=== PATIENT | male | born 1940 | race Caucasian/White ===

== ENCOUNTER 2017-06-09 19:16 | Inpatient (IN) | payer OTHER ==
[~2017-06-09] VITALS: Ht 180.3 cm; Wt 100.0 kg
[2017-06-09] MEDS ORDERED: SODIUM CHLORIDE 0.9% 1L BAG IV* STA (20:24)
[2017-06-09] MEDS ORDERED: CEFEPIME 2GM/50 ML (PMX) 50 ML IVPB STA (20:24)
[2017-06-09] MEDS ORDERED: VANCOMYCIN 1 GM (PMX) 250 ML IVPB ONE (20:30)
[2017-06-09] MEDS ORDERED: OXYB5TAB22 PO (21:21)
[2017-06-09] MEDS ORDERED: FINA1TAB16 PO (21:21)
[2017-06-09] MEDS ORDERED: DIVA125C2 PO (21:21)
[2017-06-09] MEDS ORDERED: DONE5TAB32 PO (21:36)
[2017-06-09] MEDS ORDERED: DONE5TAB7 PO (21:36)
--- NOTE | 2017-06-09 21:36 | RADRPT ---
PROCEDURE: CT Brain without contrast. CLINICAL INDICATION: Altered level of consciousness TECHNIQUE: A CT of the brain was performed on a multidetector CT scanner utilizing axial imaging f rom the skull base through the vertex without IV contrast. Multiplanar reformatted images were made . Images were reviewed on a PACS workstation. The CTDIvol is 45 mGy and the DLP is 917 mGycm. One or more of the following dose reduction techniques were utilized: 1.) Automated exposure control 2.) Adjustment of the mA +/- kV according to patient's size 3.) Use of iterative reconstruction technique. COMPARISON: None FINDINGS: There is moderate to severe diffuse cerebral volume loss with sulcal and ventricular dilatation. No discrete extra-axial fluid collection or masses present. Ventricles are in the midline and of normal contour and configuration. There are extensive confluent regions of diminished attenuation in the p eriventricular and subcortical white matter of both cerebral hemispheres. No associated mass effect is present. There is no intracranial hemorrhage. Chronic lacunar infarct is seen in the left and rig ht basal ganglia. There is preservation of normal alexandra-white discrimination. There is normal aeration of the visualized paranasal sinuses. IMPRESSION: Atrophy. Extensive white matter disease compatible with chronic small vessel ischemia. Chronic basal ganglia lacunar infarcts. No intracranial hemorrhage or mass. .Geovani Corrales MD, MD Date Time Electronically viewed and signed by .Geovani Corrales MD, MD on 06/09/2017 21:36 .A/
[2017-06-09] MEDS ORDERED: CITA10TA84 PO (21:45)
[2017-06-09] MEDS ORDERED: SIMV40TA2 PO (21:45)
[2017-06-09] MEDS ORDERED: LISI20TA11 PO (21:52)
[2017-06-09] MEDS ORDERED: ACETAMINOPHEN 325 MG TAB PO PRN (22:00)
[2017-06-09] MEDS ORDERED: ONDANSETRON 4 MG INJ IV PRN (22:00)
[2017-06-09 22:06] LABS: ABNORMAL IP MESSAGE 1; BASOPHIL # 0.1 10^3/ul (0.0-0.1); BASOPHILS % 0.3 % (0.0-2.0); EOSINOPHILS % 0.1 % (0.0-7.0); HEMATOCRIT 48.2 % (42.0-52.0); HEMOGLOBIN 15.9 g/dl (14.0-18.0); LYMPHOCYTES # 1.4 10^3/ul (0.8-2.9); LYMPHOCYTES % 7.8 % (15.0-51.0); MEAN CORPUSCULAR HEMOGLOBIN 30.2 pg (29.0-33.0); MEAN CORPUSCULAR VOLUME 91.5 fl (82.0-101.0); MEAN PLATELET VOLUME 10.3 fl (7.4-10.4); MONOCYTE # 2.7 10^3/ul (0.3-0.9); MONOCYTES % 15.2 % (0.0-11.0); NEUTROPHIL # 13.4 10^3/ul (1.6-7.5); PLATELET COUNT 191 10^3/UL (140-415); POSITIVE DIFF @See below; RED BLOOD COUNT 5.27 10^6/ul (4.70-6.10); RED CELL DISTRIBUTION WIDTH 12.5 % (11.5-14.5); WHITE BLOOD COUNT 17.6 10^3/ul (4.8-10.8)
[2017-06-09 22:23] LABS: INR 1.11; PROTIME 14.3 Sec (12.2-14.2); PT RATIO 1.1
[2017-06-09 22:24] LABS: PARTIAL THROMBOPLASTIN TIME 26.4 Sec (25.0-35.0)
[2017-06-09 22:35] LABS: ALBUMIN 3.2 g/dl (3.3-4.9); ALBUMIN/GLOBULIN RATIO 1.06; BILIRUBIN,INDIRECT 0.5 mg/dl (0-1.1); BILIRUBIN,TOTAL 0.5 mg/dl (0.2-1.3); CALCIUM 9.1 mg/dl (8.4-10.2); CREATININE 1.55 mg/dl (0.61-1.24); POTASSIUM 4.1 mmol/L (3.5-5.1); TOTAL PROTEIN 6.2 g/dl (6.1-8.1)
--- NOTE | 2017-06-09 22:36 | RADRPT ---
PROCEDURE: CT CHEST ABDOMEN AND PELVIS WITHOUT CONTRAST CLINICAL INDICATION: 76-year of age male. Septic shock TECHNIQUE: CT of the chest, abdomen, and pelvis was performed without IV contrast. Oral contrast was not administered prior to the examination. Coronal and sagittal reformatted images were obtained fr om the axial source images. Images were reviewed on a high-resolution PACS workstation. DICOM images are available. Dose information: Based on a 32 cm phantom, the estimated radiation dose (CTDIvol mGy) for each seri es in this exam is 23.9. The estimated cumulative dose (DLP mGy-cm) is 1951. One or more of the following dose reduction techniques were used: - Automated exposure control. - Adjustment of the mA and/or kV according to patient size. - Use of iterative reconstruction technique. COMPARISON: None available. FINDINGS: In the absence of intravenous contrast, the study constitutes a limited assessment of the solid orga ns and vessels. CHEST: Medical devices: None. Thyroid: Normal. Lymph nodes: No supraclavicular, axillary, mediastinal, or hilar lymphadenopathy. Vasculature: Atherosclerosis thoracic aorta with borderline aneurysmal dilatation of the ascending a cecilio measuring 4 cm. Heart: Severe 4 vessel coronary artery calcification. Normal size No pericardial effusion. Other mediastinal structures: Normal noncontrast appearance. Lung parenchyma and pleura: Mild centrilobular emphysema. There is streaky atelectasis in bilateral mid and lower lung zones. Negative for focal lung consolidation. Airways: Normal noncontrast appearance. Chest wall: Normal noncontrast appearance. ABDOMEN/PELVIS: Liver: Two indeterminate hypodensities in the right hepatic lobe are incompletely characterized may represent cysts. Liver is otherwise unremarkable. Gallbladder: Hyperdense material in the gallbladder may represent sludge or noncalcified stones. Gal lbladder is normally distended without wall inflammation. Bile ducts: No intrahepatic or extrahepatic biliary duct dilatation. Spleen: Normal noncontrast appearance. Pancreas: Normal noncontrast appearance. Adrenal glands: Normal noncontrast appearance. Kidneys and ureters: 4.3 cm exophytic cyst superior pole right kidney. Kidneys are normal size witho ut hydronephrosis. Negative for urinary calculi. Aorta and IVC: Atherosclerosis abdominal aorta with focal ectasia of the infrarenal aorta measuring 2.6 cm. 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 Lymph nodes: Normal noncontrast appearance. Gastrointestinal tract: Diverticulosis greatest in the descending colon without diverticulitis. Miguel l loops are decompressed. Appendix: Normal Bladder: Cage catheter in collapsed bladder. There is nonspecific thickening of the wall of the uri nary bladder without edema in the surrounding fat. Pelvic Organs: Prostate gland and seminal vesicles are unremarkable. Peritoneal cavity: No free fluid or free intraperitoneal air. Abdominal wall: Bilateral left greater than right fat containing inguinal hernias. Left inguinal her lois extends into the scrotum. There is a 11.1 cm well circumscribed fatty mass in the inferior left pelvis that courses through the left obturator foramen and involves the adductor compartment of the left proximal thigh. BONES: Musculoskeletal: Bones are osteopenic and there are multilevel degenerative changes in spine. There is depression of the superior endplate of L3 from an old compression fracture or Schmorl's node. No suspicious bone lesions. IMPRESSION: 1. Cage catheter in decompressed urinary bladder. There is nonspecific thickening of the wall of t he urinary bladder. Recommend correlation with urinalysis to evaluate for potential cystitis. 2. Colonic diverticulosis without diverticulitis. 3. Extensive atherosclerosis with severe 4 vessel coronary artery calcification. 4. 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 It is composed almost en tirely of fat. Recommend attention on follow-up imaging. RPTAT: HCTS Physician Darrell Date Time Electronically viewed and signed by Physician Darrell on 06/09/2017 22:36 /
[2017-06-09 22:37] VITALS: TEMP 98.9
[2017-06-09 22:57] LABS: TROPONIN-I 0.19 ng/ml (0.00-0.12)
--- NOTE | 2017-06-09 23:07 | ERD ---
ER Documentation Chief Complaint Chief Complaint More altered than normal w/ no trauma, BS177,no SOB,no CP HPI 76-year-old male with a history of dementia, hypertension, hyperlipidemia, stroke, BPH presenting from his nursing facility for altered mental status. Patient does not have family with him. Reportedly the patient was hypotensive with a systolic blood pressure in the 80s. He was given at 2 50 cc fluid bolus prior to arrival with improvement of his blood pressure. Per the facility, he has been increasingly altered today. Normally he speaks and is alert. Otherwise history is limited. ROS Unable to obtain review of systems given patient's altered mental status Medications Home Meds Reported Medications Lisinopril* (Lisinopril*) 20 Mg Tablet, 20 MG PO DAILY, #30 TAB 06/09/17 Simvastatin* (Zocor*) 40 Mg Tablet, 40 MG PO QHS, #30 TAB 06/09/17 Citalopram Hydrobromide* (Citalopram Hydrobromide*) 10 Mg Tablet, 10 MG PO DAILY , #30 TAB 06/09/17 Donepezil* (Aricept*) 5 Mg Tablet, 5 MG PO DAILY, TAB 06/09/17 Donepezil* (Donepezil*) 5 Mg Tablet, 5 MG PO DAILY, #30 TAB 06/09/17 Divalproex Sodium* (Divalproex Sodium*) 125 Mg Cap.sprink, 125 MG PO QID, #120 CAP 06/09/17 Oxybutynin Chloride* (Ditropan* XL) 5 Mg Tabsr, 5 MG PO DAILY, TAB.SA 06/09/17 Finasteride* (Finasteride*) 1 Mg Tablet, 1 MG PO HS, TAB 06/09/17 Allergies Allergies: Coded Allergies: No Known Allergy (Unverified , 06/09/17) PMhx/Soc Unable to obtain from patient. Per records, he has a history of hypertension, stroke, dementia FmHx Family History: other (Unable to obtain) Physical Exam Vitals Vital Signs Date Time Temp Pulse Resp B/P Pulse Ox O2 Delivery O2 Flow Rate FiO2 06/09/17 23:39 107 20 135/81 94 Room Air 06/09/17 22:37 98.9 111 21 145/83 95 Room Air 06/09/17 20:35 97.7 105 18 124/88 97 Nasal Cannula 2.0 06/09/17 19:16 98.7 92 22 88/68 92 Physical Exam Const: Sleeping, somewhat arousable. Opens eyes to verbal command. Nontoxic, unkempt Head: Atraumatic Eyes: Normal Conjunctiva, PERRLA ENT: Dry tacky mucous membranes Neck: Full range of motion..~ No meningismus. Resp: Clear to auscultation bilaterally Cardio: Tachycardic, regular rhythm, no murmurs Abd: Soft, non tender, non distended. Normal bowel sounds Skin: No petechiae or rashes Back: No wounds noted. Ext: No cyanosis, or edema Neur: Somnolent but arousable. Makes incomprehensible sounds. Moves all extremities spontaneously. Result Diagram: 06/09/17214906/09/172149 Results 24 hrs Laboratory Tests Test 06/09/17 21:50 White Blood Count 17.610^3/ul Red Blood Count 5.2710^6/ul Hemoglobin 15.9g/dl Hematocrit 48.2% Mean Corpuscular Volume 91.5fl Mean Corpuscular Hemoglobin 30.2pg Mean Corpuscular Hemoglobin Concent 33.0g/dl Red Cell Distribution Width 12.5% Platelet Count 68222^3/UL Mean Platelet Volume 10.3fl Neutrophils % 76.0% Lymphocytes % 7.8% Monocytes % 15.2% Eosinophils % 0.1% Basophils % 0.3% Nucleated Red Blood Cells % 0.0/100WBC Neutrophils # 13.410^3/ul Lymphocytes # 1.410^3/ul Monocytes # 2.710^3/ul Eosinophils # 0.010^3/ul Basophils # 0.110^3/ul Nucleated Red Blood Cells # 0.010^3/ul Prothrombin Time 14.3Sec Prothrombin Time Ratio 1.1 INR International Normalized Ratio 1.11 Activated Partial Thromboplast Time 26.4Sec Sodium Level 145mmol/L Potassium Level 4.1mmol/L Chloride Level 111mmol/L Carbon Dioxide Level 24mmol/L Anion Gap 14 Blood Urea Nitrogen 34mg/dl Creatinine 1.55mg/dl Glucose Level 114mg/dl Lactic Acid Level 5.1mmol/L Calcium Level 9.1mg/dl Total Bilirubin 0.5mg/dl Direct Bilirubin 0.00mg/dl Indirect Bilirubin 0.5mg/dl Aspartate Amino Transf (AST/SGOT) 65IU/L Alanine Aminotransferase (ALT/SGPT) 38IU/L Alkaline Phosphatase 63IU/L Troponin I 0.190ng/ml Total Protein 6.2g/dl Albumin 3.2g/dl Globulin 3.00g/dl Albumin/Globulin Ratio 1.06 Current Medications Medications (Trade) Dose Ordered Sig/Yaquelin Route PRN Reason Start Time Stop Time Status Last Admin Dose Admin Sodium Chloride 3000 ml 3,000 ml BOLUS OVER 2 HOURS STAT IV* 06/09/17 20:24 06/09/17 20:28 DC 06/09/17 19:13 Cefepime HCl 50 ml @ 100 mls/hr ONCE STAT IVPB 06/09/17 20:24 06/09/17 20:53 DC 06/09/17 19:36 Vancomycin HCl (Vancocin) 250 ml @ 125 mls/hr ONCE ONCE IVPB 06/09/17 20:30 06/09/17 22:29 DC 06/09/17 20:08 Ondansetron HCl (Zofran Inj) 4 mg ER BRIDGE PRN IV NAUSEA AND/OR VOMITING 06/09/17 22:00 06/10/17 21:59 Acetaminophen 650 mg 650 mg ER BRIDGE PRN PO MILD PAIN/FEVER 06/09/17 22:00 06/10/17 21:59 Piperacillin Sod/ Tazobactam Sod 50 ml @ 100 mls/hr Q6 IVPB 06/10/17 00:00 Sodium Chloride (NS) 1,000 ml @ 1,000 mls/hr Q1H ONCE IV 06/09/17 23:30 06/10/17 00:29 Procedures/MDM EMERGENT LABS AND DIAGNOSTIC STUDIES: Lab Results above were reviewed and interpreted by me. CBC shows leukocytosis CMP shows hypernatremia, hyperchloremia, elevated BUN and creatinine lactate elevated to 4 Urinalysis does not show evidence of infection Troponin #1 within normal limits Troponin #2 elevated 12-lead EKG #1 was interpreted by Peter Ochoa MD: Sinus tachycardia at 120 bpm Left axis deviation Nonspecific ST abnormalities in the anterior and inferior leads No acute ST or T wave changes suggestive of acute ischemia or STEMI. 12-lead EKG #2 was interpreted by Peter Ochoa MD: Rate/Rhythm: Sinus tachycardia at 105 bpm with PACs QRS, ST, T-waves: Left axis deviation, no changes consistent w/ acute ischemia Impression: No evidence of ischemia or arrhythmia Radiology Results as interpreted by Radiology below were reviewed by Tamika Ochoa MD: Chest x-ray shows no acute abnormalities, specifically no consolidations consistent with pneumonia CT head shows no acute abnormalities, chronic changes noted CT chest shows no acute abnormalities CT abdomen and pelvis shows thickened bladder wall, otherwise no acute abnormalities Initial Nursing notes reviewed. Previous Medical Records requested via the Electronic Health Record. EMERGENCY DEPARTMENT COURSE / MEDICAL DECISION MAKING: Patient is presenting with reported altered mental status. Upon arrival he was normotensive but had tachycardia. He was also afebrile. On exam he was very dry. Sepsis workup was initiated. 30 cc/kg of IV fluids were given. Broad- spectrum antibiotics were also given. However workup does not show any source of infection. Repeat lactate was up trending. He was also noted to have an elevation of troponin, which may be secondary to sepsis. There is no evidence of ischemia on his EKGs. The patient's nurse, Roxanna, and I spoke with the patient's over the phone. She stated that she did not want a lumbar puncture done or any heroic or invasive measures. She is amenable to noninvasive treatment. She understands that he is very sick and that we do not have a source of infection and the only place we have not looked is in the spinal fluid. She states that his mental status is his baseline. He has not spoken to her for months and does not recognize her. Per his , his dementia is very advanced. Patient's infectious symptoms have not stabilized and the patient is at risk of rapid decompensation. The patient will be admitted for careful hydration, antibiotic therapy, and infectious source control.I spoke with the admitting physician, Dr. Camarena, about the 's wishes. Severe Sepsis Assessment: Infectious Source: Unknown End organ damage indicated by: Lactate > 2.0 mmol/L Hypotension( SBP < 90 or >40 mmHG drop or MAP < 65) Severe Sepsis Managment: Blood Cultures X 2 before broad spectrum antibiotics initiated within 3 hours of recognition. 30 ml/kg NS bolus Completed Initial Lactate: 4 Repeat Lactate 5.1 Critical Care: Time: 40 minutes Treatments/Evaluations: Emergent fluid management, while maintaining close respiratory support. Immediate broad spectrum antibiotic therapy. Simultaneous assessment for possible sources in order to direct therapy. Consideration for invasive and chemical support to prevent respiratory or cardiac collapse. Septic Shock Assessment (1 hour post 30 ml/kg fluid bolus): Hypotension (SBP < 90 or 40 mmHg drop, MAP < 65): No Lactic acid > 4.0 yes Perfusion Reassessment for Septic Shock: Temp 98.9, Pulse 111, RR 21, BP 145 / 83 Heart Exam: Tachycardic Lung Exam: No Crackles Capillary Refill: Normal Peripheral Pulses: Radially present Skin: Pale, warm, dry Accepting Care Team: Current data and ongoing care discussed. Time: Time of admission Primary Provider: Migue Outstanding Data: cultures Departure Diagnosis: Primary Impression: Altered mental status Altered mental status type: somnolence Qualified Code: R40.0 - Somnolence Additional Impressions: Septic shock Acute renal failure Acute renal failure type: unspecified Qualified Code: N17.9 - Acute renal failure, unspecified acute renal failure type Condition: Critical SERENITY OCHOA MD Jun 09, 2017 23:06
--- NOTE | 2017-06-09 23:24 | RADRPT ---
PROCEDURE: Renal US. CLINICAL INDICATION: Renal failure. TECHNIQUE: Multiple sonographic images of the kidneys were obtained. COMPARISON: No prior studies are submitted for comparison. FINDINGS: The right kidney measures 12.5 cm. There is preservation of corticomedullary differentiation. No sha dowing renal calculus is identified. There is no evidence of hydronephrosis. There is 83.5 x 4 x 3.9 cm cyst within the upper pole of the right kidney. The left kidney measures 11.3 cm. There is preservation of corticomedullary differentiation. No shad owing renal calculus is identified. There is no evidence of hydronephrosis. The bladder is fluid-filled. The visualized aorta is within normal limits. The visualized portions of the IVC are within normal l imits. IMPRESSION: No evidence of shadowing renal calculi or hydronephrosis. RPTAT: HIKT .Stephen Will MD, Date Time Electronically viewed and signed by .Stephen Will MD, on 06/09/2017 23:23 .T/
[2017-06-09] MEDS ORDERED: SOD CHLORIDE 0.9% 1,000 ML IV ONE (23:30)
[2017-06-10] VITALS (12 sets, daily range): BP systolic 132–170; BP diastolic 73–97; PULSE 83–101; RESP 17–21; Ht 180.3 cm; Wt 100.0 kg
[2017-06-10] MEDS: PIPER-TAZO 2.25 GM (PMX) 50 ML IVPB SCH ×4 (01:06→17:14)
[2017-06-10] MEDS ORDERED: VANCOMYCIN IV PER PHARMACY XX SCH (01:30)
--- NOTE | 2017-06-10 01:30 | HP ---
Date/Time of Note Date/Time of Note DATE: 06/10/17 TIME: : Assessment/Plan VTE Prophylaxis VTE Prophylaxis Intervention: SCD's Lines/Catheters IV [facility]from [facility] Peripheral IV Assessment/Plan Chief Complaint/Hosp Course This is a 76-year-old male being admitted to the telemetry floor for: #1 Septic shock: Dehydration and/or infection and/or bowel ischemia. Patient is tachycardic and lactic acid before. Patient also was hypotensive. At the current time will provide aggressive IV fluid hydration with normal saline. Will trend lactate levels. At the current time there is been no source of infection has been able to be identified. Will check a urinalysis and urine culture. CT of the abdomen and pelvis and chest did not show any acute signs of infection however this was without contrast secondary to the patient's acute kidney injury. Being that he has been in and out of healthcare facilities over the last few weeks there is obvious he concern for healthcare associated infections. Less likely bowel ischemia at this time as patient's abdomen is soft and he does not appear to be in a deep to the abdominal exam lactic acid also trending normal. Patient is not displaying any nuchal rigidity. However because no source is able to be determined the ER physician did want to attempt lumbar puncture however when spoken to the over the phone she does not want any aggressive measures or procedures done for the patient. I spoke to her myself over the phone as well and she does not want a lumbar puncture done. CODE STATUS hernandez patient is a DNR however the patient's did state that if there is something like appendicitis but that she would be willing to consider possible surgical intervention. At the current time will await serra culture results. As patient's lactate levels have been improving will continue fluid hydration and consider a CT abdomen pelvis with contrast if the renal function becomes acceptable and no source of infection is found. Patient has been started on empiric antibiotics of Vanco and cefepime in the ED, I will continue vancomycin IV pharmacy to dose and Zosyn IV, renally dosed. Trend lactate levels. #2 elevated troponin: Based on patient's mental status, unable to determine whether the patient is feeling any chest pain however he at the current time is sleeping comfortably in bed. EKG does not show any acute abnormalities. Could be secondary to demand. At the current time will trend troponins. In order an echocardiogram in the a.m. If the troponins do continue to rise will initiate heparin drip. 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 It is composed almost entirely of fat. Recommend attention on follow-up imaging. Will continue to monitor this, I think less likely this being the culprit for the acute sickness at this time. Will continue to monitor this, consider surgical consult. #4 acute kidney injury: I do not have a baseline creatinine to go by. The current time will order ultrasound of the kidneys, urine microscopic exam. Will renally dose medications. Will continue to monitor renal function. #5 dementia: I am unsure at this time of the patient's baseline though the does state that he is confused at baseline. Will continue to treat for #1 and monitor patient's mental status. Resume patient's home medications once patient is able to swallow. Will order swallow evaluation. #6 hypertension: At the current time will avoid patient's home hypertensive medications secondary to hypotension. Will resume medications once patient is clinically stable. #7 stroke: At the current time due to the patient's lethargy and somnolence, and unable to assess patient's neurological exam to see whether there are any residual deficits from his stroke. #8 BPH: Stable, currently patient has a Cage that was inserted. #9 DVT and GI prophylaxis: SCDs, no GI prophylaxis indicated. I did speak at length with the over the phone and explained to her the patient's condition. At the current time the patient's does not want any heroic measures or invasive procedures such as a lumbar tap. She is agreeable to having abdominal surgery if the patient is found to have something such as appendicitis. This case I did discuss the patient's CODE STATUS with the who did state that the patient is a DO NOT RESUSCITATE, DNR. Further treatment strategy will be elevated as per the clinical course Problems: HPI/ROS Admit Date/Time Admit Date/Time Jun 09, 2017 at 22:01 Hx of Present Illness cc: AMS This is a 76-year-old male with a history of dementia, hypertension, hyperlipidemia, stroke, BPH presenting from his nursing facility for altered mental status. History was obtained from the ER physician as well as the over the phone. Reportedly the patient was hypotensive with a systolic blood pressure in the 80s. He was given fluid bolus prior to arrival with improvement of his blood pressure. Per the facility, he has been increasingly altered today. states he has baseline dementia and he has been in and out of healthcare facilities over the past few weeks. states he is a DNR and she does not want him to undergo aggressive procedures such as a lumbar tap or aggressive surgery unless something like "appendicitis" is found according to her. allergies: nkda meds: see mar ROS Subjective hx not possible: pt non-verbal (dementia, lethargic), pt critical status PMH/Family/Social Past Medical History dementia, hypertension, hyperlipidemia, stroke, BPH Past Surgical History unknown, as unable to obtain history Family History Significant Family History: other (unknown as unable to obtain history) Social History unknown as unable to obtain history Exam/Review of Systems Vital Signs Vitals Vital Signs Date Time Temp Pulse Resp B/P Pulse Ox O2 Delivery O2 Flow Rate FiO2 06/10/17 00:39 93 06/10/17 00:00 98.4 19 133/73 96 06/09/17 23:39 Room Air 06/09/17 20:35 2.0 Intake and Output 06/09/17 06/09/17 06/10/17 15:00 23:00 07:00 Output Total 350 ml Balance -350 ml Exam Exam General: Patient is lethargic and somnolent in bed, he is arousable but is not able to answer questions appropriately. HEENT: Atraumatic, normocephalic. The pupils are equal, round and reactive. Extraocular motor are intact Neck: Supple with full range of motion. No rigidity or meningismus Chest: Nontender Lungs: Clear to auscultation bilaterally no crackles rales or wheezing Heart: Sinus tachycardia, Abdomen: Soft , nontender, nondistended , bowel sounds are present. No guarding no rebound tenderness , No masses or organomegaly. No costovertebral temporal angle mass Extremities: Normal to inspection, no edema no cyanosis Neurologic: Somnolent, lethargic. Patient is easily arousable. History of dementia. Additional Comments PROCEDURE: Renal US. CLINICAL INDICATION: Renal failure. TECHNIQUE: Multiple sonographic images of the kidneys were obtained. COMPARISON: No prior studies are submitted for comparison. FINDINGS: The right kidney measures 12.5 cm. There is preservation of corticomedullary differentiation. No shadowing renal calculus is identified. There is no evidence of hydronephrosis. There is 83.5 x 4 x 3.9 cm cyst within the upper pole of the right kidney. The left kidney measures 11.3 cm. There is preservation of corticomedullary differentiation. No shadowing renal calculus is identified. There is no evidence of hydronephrosis. The bladder is fluid-filled. The visualized aorta is within normal limits. The visualized portions of the IVC are within normal limits. IMPRESSION: No evidence of shadowing renal calculi or hydronephrosis. RPTAT: HIKT .Stephen Will MD, MD Date Time Electronically viewed and signed by .Stephen Will MD, MD on 06/09/2017 23:23 .T/ CC: DONA CORTES PROCEDURE: CT CHEST ABDOMEN AND PELVIS WITHOUT CONTRAST CLINICAL INDICATION: 76-year of age male. Septic shock TECHNIQUE: CT of the chest, abdomen, and pelvis was performed without IV contrast. Oral contrast was not administered prior to the examination. Coronal and sagittal reformatted images were obtained from the axial source images. Images were reviewed on a high-resolution PACS workstation. DICOM images are available. Dose information: Based on a 32 cm phantom, the estimated radiation dose ( CTDIvol mGy) for each series in this exam is 23.9. The estimated cumulative dose (DLP mGy-cm) is 1951. One or more of the following dose reduction techniques were used: - Automated exposure control. - Adjustment of the mA and/or kV according to patient size. - Use of iterative reconstruction technique. COMPARISON: None available. FINDINGS: In the absence of intravenous contrast, the study constitutes a limited assessment of the solid organs and vessels. CHEST: Medical devices: None. Thyroid: Normal. Lymph nodes: No supraclavicular, axillary, mediastinal, or hilar lymphadenopathy. Vasculature: Atherosclerosis thoracic aorta with borderline aneurysmal dilatation of the ascending aorta measuring 4 cm. Heart: Severe 4 vessel coronary artery calcification. Normal size No pericardial effusion. Other mediastinal structures: Normal noncontrast appearance. Lung parenchyma and pleura: Mild centrilobular emphysema. There is streaky atelectasis in bilateral mid and lower lung zones. Negative for focal lung consolidation. Airways: Normal noncontrast appearance. Chest wall: Normal noncontrast appearance. ABDOMEN/PELVIS: Liver: Two indeterminate hypodensities in the right hepatic lobe are incompletely characterized may represent cysts. Liver is otherwise unremarkable. Gallbladder: Hyperdense material in the gallbladder may represent sludge or noncalcified stones. Gallbladder is normally distended without wall inflammation. Bile ducts: No intrahepatic or extrahepatic biliary duct dilatation. Spleen: Normal noncontrast appearance. Pancreas: Normal noncontrast appearance. Adrenal glands: Normal noncontrast appearance. Kidneys and ureters: 4.3 cm exophytic cyst superior pole right kidney. Kidneys are normal size without hydronephrosis. Negative for urinary calculi. Aorta and IVC: Atherosclerosis abdominal aorta with focal ectasia of the infrarenal aorta measuring 2.6 cm. 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 Lymph nodes: Normal noncontrast appearance. Gastrointestinal tract: Diverticulosis greatest in the descending colon without diverticulitis. Bowel loops are decompressed. Appendix: Normal Bladder: Cage catheter in collapsed bladder. There is nonspecific thickening of the wall of the urinary bladder without edema in the surrounding fat. Pelvic Organs: Prostate gland and seminal vesicles are unremarkable. Peritoneal cavity: No free fluid or free intraperitoneal air. Abdominal wall: Bilateral left greater than right fat containing inguinal hernias. Left inguinal hernia extends into the scrotum. There is a 11.1 cm well circumscribed fatty mass in the inferior left pelvis that courses through the left obturator foramen and involves the adductor compartment of the left proximal thigh. BONES: Musculoskeletal: Bones are osteopenic and there are multilevel degenerative changes in spine. There is depression of the superior endplate of L3 from an old compression fracture or Schmorl's node. No suspicious bone lesions. IMPRESSION: 1. Cage catheter in decompressed urinary bladder. There is nonspecific thickening of the wall of the urinary bladder. Recommend correlation with urinalysis to evaluate for potential cystitis. 2. Colonic diverticulosis without diverticulitis. 3. Extensive atherosclerosis with severe 4 vessel coronary artery calcification. 4. 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 It is composed almost entirely of fat. Recommend attention on follow-up imaging. RPTAT: HCTS Physician Darrell Date Time Electronically viewed and signed by Physician Darrell on 06/09/2017 22: 36 CS/ CC: SERENITY COSTA MD 12-lead EKG #1 : Sinus tachycardia at 120 bpm Left axis deviation Nonspecific ST abnormalities in the anterior and inferior leads No acute ST or T wave changes suggestive of acute ischemia or STEMI. 12-lead EKG #2 : Rate/Rhythm: Sinus tachycardia at 105 bpm with PACs QRS, ST, T-waves: Left axis deviation, no changes consistent w/ acute ischemia Impression: No evidence of ischemia or arrhythmia Above as per ED physician documentation Labs Result Diagram: 06/09/17214906/09/172149 Medications Medications Current Medications Piperacillin Sod/ Tazobactam Sod (Zosyn 2.25gm/ 50ml (Pmx)) 50 ml @ 100 mls/hr Q6 IVPB Last administered on 06/10/17t 01:06; Admin Dose 100 MLS/HR; Start at 00:00 DONA CORTES Jun 10, 2017 01:30
[2017-06-10 01:43] LABS: ALBUMIN/GLOBULIN RATIO 1.03; BILIRUBIN,INDIRECT 0.6 mg/dl (0-1.1); BILIRUBIN,TOTAL 0.6 mg/dl (0.2-1.3); CALCIUM 8.8 mg/dl (8.4-10.2); CREATININE 1.35 mg/dl (0.61-1.24); POTASSIUM 4.2 mmol/L (3.5-5.1); TOTAL PROTEIN 5.9 g/dl (6.1-8.1)
[2017-06-10 08:38] LABS: CK-MB 19.3 ng/ml (0.0-2.4); TROPONIN-I 0.784 ng/ml (0.00-0.12)
[2017-06-10] MEDS ORDERED: HEPARIN 1000 UNITS/ML 10 ML INJ IV PRN (09:30)
[2017-06-10] MEDS ORDERED: HEPARIN 1000 UNITS/ML 10 ML INJ IV ONE (09:30)
[2017-06-10 09:56] LABS: BASOPHIL # 0.1 10^3/ul (0.0-0.1); BASOPHILS % 0.5 % (0.0-2.0); EOSINOPHILS # 0.2 10^3/ul (0.0-0.5); EOSINOPHILS % 2.1 % (0.0-7.0); HEMATOCRIT 43.5 % (42.0-52.0); HEMOGLOBIN 14.5 g/dl (14.0-18.0); LYMPHOCYTES # 1.6 10^3/ul (0.8-2.9); LYMPHOCYTES % 14.5 % (15.0-51.0); MEAN CORPUSCULAR HEMOGLOBIN 30.1 pg (29.0-33.0); MEAN CORPUSCULAR HGB CONC 33.3 g/dl (32.0-37.0); MEAN CORPUSCULAR VOLUME 90.4 fl (82.0-101.0); MEAN PLATELET VOLUME 10.4 fl (7.4-10.4); MONOCYTE # 1.2 10^3/ul (0.3-0.9); MONOCYTES % 10.9 % (0.0-11.0); NEUTROPHIL # 8.1 10^3/ul (1.6-7.5); NEUTROPHILS % 71.6 % (39.0-77.0); PLATELET COUNT 170 10^3/UL (140-415); RED BLOOD COUNT 4.81 10^6/ul (4.70-6.10); RED CELL DISTRIBUTION WIDTH 12.8 % (11.5-14.5); WHITE BLOOD COUNT 11.3 10^3/ul (4.8-10.8)
[2017-06-10 10:16] LABS: INR 1.06; PROTIME 13.8 Sec (12.2-14.2); PT RATIO 1.1
[2017-06-10 10:17] LABS: PARTIAL THROMBOPLASTIN TIME 26.9 Sec (25.0-35.0)
--- NOTE | 2017-06-10 10:17 | RADRPT ---
Echocardiogram Report Patient Name: CLIFFORD HERRING Gender: Male Date: 1940 Study Date: 10-Jun-2017 Schedule Announcer: Jake Castrejon [facility] Location: [address] Ref. Physician: DONA CORTES Quality: Technically Difficult Study Procedures: Transthoracic echocardiogram with complete 2D, M-Mode, and doppler examination. Indications: elevated troponin. 2D/M Mode Doppler Measurement Value Normal Ranges Measurement Value Normal Ranges LVIDd 2D 4.2 3.5 - 5.6 cm JAYLA Vmax 2.2 cm2 LVIDs 2D 2.9 2.1 - 4.1 cm JAYLA VTI 2.2 cm2 LVPWd 2D 1.5 0.6 - 1.1 cm AV Peak Raimundo 1.9 m/sec IVSd 2D 1.4 0.6 - 1.1 cm AV Peak PG 15.0 mmHg AoR Diam 2D 3.6 2.0 - 3.7 cm LVOT Peak Raimundo 1.2 m/sec EDV 2D 79.8 cm3 LVOT Peak PG 6.2 mmHg ESV 2D 24.5 cm3 MV E Peak Raimundo 0.6 m/sec LA Dimen 2D 3.0 2.3 - 4.0 cm MV A Peak Raimundo 1.0 m/sec LVOT Diam 2.1 cm MV E/A 0.6 MV Decel Time 168 msec MV Decel Banner 3 MV E/A 0.6 Findings Left Ventricle: Very poor endocardial visualization but overall the size and function are likely normal. Definite wall motion abnormalities could not be assessed. Mild LVH. Right Ventricle: Not well visualized. Left Atrium: Not well visualized. Right Atrium: Not well visualized. Mitral Valve: Mitral valve is not well visualized. Trace mitral regurgitation. Aortic Valve: Aortic valve not well visualized. Tricuspid Valve: Tricuspid valve not well visualized. Unable to obtain RVSP due to minimal presence of tricuspid regurgitation. Pulmonic Valve: Pulmonic valve not well visualized. Pericardium: Normal pericardium with no significant pericardial effusion. Aorta: Not well visualized. IVC: Normal size and normal respiratory collapse consistent with normal right atrial pressure. Conclusions 1.Technically very difficult study with poor endocardial visualization. 2.Very poor endocardial visualization but overall the size and function are likely normal. Definite wall motion abnormalities could not be assessed. Mild LVH. 3.No obvious valvular dysfunction but not well visualized. 4.Unable to obtain RVSP. RA pressure estimated to be 3 mmHg. Electronically Signed By: Mathew Marcelino 10-Jun-2017 10:16:51 -0800 Patient Name: CLIFFORD HERRING Study Date: 10-Jun-2017 [id number]
[2017-06-10] MEDS: CITALOPRAM 20 MG TAB PO SCH (10:27)
[2017-06-10] MEDS: HEPARIN 25000 UNITS/250 ML 250 ML IV SCH ×2 (11:01→18:20)
--- NOTE | 2017-06-10 11:09 | PN ---
Date/Time of Note Date/Time of Note DATE: 06/10/17 TIME: 10:59 Assessment/Plan VTE Prophylaxis VTE Prophylaxis Intervention: SCD's Lines/Catheters IV Catheter Type (from Nrsg): Peripheral IV Urinary Cath still in place: Yes Reason Cath still needed: other (indicate) (unclear) Assessment/Plan Assessment/Plan 76 yo M with dementia sent from SNF for acute on chronic encephalopathy, most likely toxic/metabolic from sepsis with resultant lactic acidosis. Source of sepsis at this time unclear, possibly urine? Also with NSTEMI likely from demand from sepsis. #sepsis: cultures is process -continue zosyn and vanc. will likely stop vanc tomorrow if no evidence of GPCs in blood or urine #NSTEMI: most likely from demand -heparin drip -cardiology consult -cont home statin -consider bb, holding home acei given LEO -check a1c #LEO: likely prerenal from sepsis, already improving -hold acei #lactic acidosis: 2/2 sepsis. resolving #dementia/?hx seizures and/or bipolar d/o?: cont home psychotropic medications #BPH/?OAB: cont finasteride and ditropan #FEN: ST eval pending for swallow safety prophx: SQ[facility] Subjective 24 Hr Interval Summary Free Text/Dictation Pt resting but able to follow commands this AM however doesn't answer questions Exam/Review of Systems Vital Signs Vitals Vital Signs Date Time Temp Pulse Resp B/P Pulse Ox O2 Delivery O2 Flow Rate FiO2 06/10/17 08:19 94 06/10/17 08:08 98.1 17 153/76 95 06/10/17 01:55 2.0 06/10/17 01:00 Nasal Cannula Intake and Output 06/09/17 06/09/17 06/10/17 15:00 23:00 07:00 Intake Total 50 ml Output Total 850 ml Balance -800 ml Exam nad sitting up in bed no mrg lungs clear abd soft carballo in place labs reviewed, trops uptrending WBCs and LA downtrending UA from other chart reviewed cultures negative thus far CXR unremarkable TTE results reviewed Results Result Diagram: 06/10/17 0940 06/10/17 0109 Results 24 hrs Laboratory Tests Test 06/09/17 21:50 06/09/17 22:00 06/09/17 23:30 06/10/17 01:09 White Blood Count 17.6 H Red Blood Count 5.27 Hemoglobin 15.9 Hematocrit 48.2 Mean Corpuscular Volume 91.5 Mean Corpuscular Hemoglobin 30.2 Mean Corpuscular Hemoglobin Concent 33.0 Red Cell Distribution Width 12.5 Platelet Count 191 Mean Platelet Volume 10.3 Neutrophils % 76.0 Lymphocytes % 7.8 L Monocytes % 15.2 H Eosinophils % 0.1 Basophils % 0.3 Nucleated Red Blood Cells % 0.0 Neutrophils # 13.4 H Lymphocytes # 1.4 Monocytes # 2.7 H Eosinophils # 0.0 Basophils # 0.1 Nucleated Red Blood Cells # 0.0 Prothrombin Time 14.3 H Prothrombin Time Ratio 1.1 INR International Normalized Ratio 1.11 Activated Partial Thromboplast Time 26.4 Sodium Level 145 H 144 Potassium Level 4.1 4.2 Chloride Level 111 H 109 Carbon Dioxide Level 24 29 Anion Gap 14 10 Blood Urea Nitrogen 34 H 32 H Creatinine 1.55 H 1.35 H Glucose Level 114 104 Lactic Acid Level 5.1 *H 3.9 *H 2.8 *H Calcium Level 9.1 8.8 Total Bilirubin 0.5 0.6 Direct Bilirubin 0.00 0.00 Indirect Bilirubin 0.5 0.6 Aspartate Amino Transf (AST/SGOT) 65 H 70 H Alanine Aminotransferase (ALT/SGPT) 38 46 Alkaline Phosphatase 63 66 Troponin I 0.190 *H Total Protein 6.2 5.9 L Albumin 3.2 L 3.0 L Globulin 3.00 2.90 Albumin/Globulin Ratio 1.06 1.03 Erythrocyte Sedimentation Rate 4 Test 06/10/17 03:11 06/10/17 06:27 06/10/17 09:40 Lactic Acid Level 2.3 *H 1.5 Creatine Kinase 1467 H Creatine Kinase Index 1.3 Creatinine Kinase MB (Mass) 19.30 H Troponin I 0.784 *H White Blood Count 11.3 #H Red Blood Count 4.81 Hemoglobin 14.5 Hematocrit 43.5 Mean Corpuscular Volume 90.4 Mean Corpuscular Hemoglobin 30.1 Mean Corpuscular Hemoglobin Concent 33.3 Red Cell Distribution Width 12.8 Platelet Count 170 Mean Platelet Volume 10.4 Neutrophils % 71.6 Lymphocytes % 14.5 L Monocytes % 10.9 Eosinophils % 2.1 Basophils % 0.5 Nucleated Red Blood Cells % 0.0 Neutrophils # 8.1 H Lymphocytes # 1.6 Monocytes # 1.2 H Eosinophils # 0.2 Basophils # 0.1 Nucleated Red Blood Cells # 0.0 Prothrombin Time 13.8 Prothrombin Time Ratio 1.1 INR International Normalized Ratio 1.06 Activated Partial Thromboplast Time 26.9 Medications Medications Current Medications Piperacillin Sod/ Tazobactam Sod 50 ml @ 100 mls/hr Q6 IVPB Last administered on 06/10/17 06:55; Admin Dose 100 MLS/HR; Start 06/10/17 at 00:00 Vancomycin HCl/ Sodium Chloride (Vancocin/NS) 250 ml @ 83.333 mls/ hr Q24H IVPB ; Start 06/10/17 at 10:00 Citalopram Hydrobromide (Celexa) 10 mg DAILY PO Last administered on 10:27; Admin Dose 10 MG; Start 06/10/17 at 09:30 Divalproex Sodium (Depakote Sprinkle) 125 mg QID PO ; Start 06/10/17 at 13:00 Donepezil HCl (Aricept) 5 mg QHS PO ; Start 06/10/17 at 21:00 Oxybutynin Chloride (Ditropan Xl) 5 mg DAILY PO ; Start 06/10/17 at 11:00 Atorvastatin Calcium (Lipitor) 20 mg DAILY@21 PO ; Start 06/10/17 at 21:00 Finasteride (Proscar) 5 mg QHS PO ; Start 06/10/17 at 21:00 PETERSON SHARPE MD Jun 10, 2017 11:09
--- NOTE | 2017-06-10 12:30 | CONS ---
Date/Time of Note Date/Time of Note DATE: 06/10/17 TIME: 12:30 Assessment/Plan Assessment/Plan Chief Complaint/Hosp Course NSTEMI: Peak trop 0.8. EF likely preserved but poor echo study. Likely type II in setting of septic shock/hypotension in background of likely CAD. Treat medically as pt is not a candidate for cardiac cath. Septic shock: Source unclear as of yet. Cultures pending Acute renal failure: improved with IVF H/o CVA HTN HL -ok to continue heparin for now but likely d/c tomorrow -start ASA, low dose statin -metoprolol 25mg BID -antibiotics per primary Problems: Consultation Date/Type/Reason Admit Date/Time Jun 09, 2017 at 22:01 Date of Consultation: Jun 10, 2017 Type of Consultation: Cardiology Reason for Consultation NSTEMI Referring Provider: PETERSON SHARPE MD Hx of Present Illness 76 yo M with a h/o HTN, HL, prior CVA, stroke, who was brought in from his assisted living facility with altered mentation and was found to have septic shock. He was fluid resuscitated and given antibiotics. He had elevated trops peaking at 0.8. The pt was apparently less alert yesterday but today is alert though confused. No chest pain, SOB. limited due to dementia Past Medical History per hPI Social History Smoking Status: Unknown if ever smoked Exam/Review of Systems Vital Signs Vitals Vital Signs Date Time Temp Pulse Resp B/P Pulse Ox O2 Delivery O2 Flow Rate FiO2 06/10/17 12:08 83 06/10/17 11:55 98.4 17 165/97 92 06/10/17 01:55 2.0 06/10/17 01:00 Nasal Cannula Intake and Output 06/09/17 06/09/17 06/10/17 15:00 23:00 07:00 Intake Total 50 ml Output Total 850 ml Balance -800 ml Exam Constitutional: alert, oriented Psych: confusion Head: atraumatic, normocephalic Eyes: nl conjunctiva ENMT: nl external ears & nose Neck: supple, No jvd Respiratory: clear to auscultation, No crackles/rales Cardiovascular: regular rate and rhythm, No edema, No systolic murmur Gastrointestinal: non-tender, soft, No distended Neurological: nl speech, No nl mental status Skin: No rash or lesions Results EKG: sinus tachycardia, no ST changes Result Diagram: 06/10/17 0940 06/10/17 0109 Results 24 hrs Laboratory Tests Test 06/09/17 21:50 06/09/17 22:00 06/09/17 23:30 06/10/17 01:09 White Blood Count 17.6 H Red Blood Count 5.27 Hemoglobin 15.9 Hematocrit 48.2 Mean Corpuscular Volume 91.5 Mean Corpuscular Hemoglobin 30.2 Mean Corpuscular Hemoglobin Concent 33.0 Red Cell Distribution Width 12.5 Platelet Count 191 Mean Platelet Volume 10.3 Neutrophils % 76.0 Lymphocytes % 7.8 L Monocytes % 15.2 H Eosinophils % 0.1 Basophils % 0.3 Nucleated Red Blood Cells % 0.0 Neutrophils # 13.4 H Lymphocytes # 1.4 Monocytes # 2.7 H Eosinophils # 0.0 Basophils # 0.1 Nucleated Red Blood Cells # 0.0 Prothrombin Time 14.3 H Prothrombin Time Ratio 1.1 INR International Normalized Ratio 1.11 Activated Partial Thromboplast Time 26.4 Sodium Level 145 H 144 Potassium Level 4.1 4.2 Chloride Level 111 H 109 Carbon Dioxide Level 24 29 Anion Gap 14 10 Blood Urea Nitrogen 34 H 32 H Creatinine 1.55 H 1.35 H Glucose Level 114 104 Lactic Acid Level 5.1 *H 3.9 *H 2.8 *H Calcium Level 9.1 8.8 Total Bilirubin 0.5 0.6 Direct Bilirubin 0.00 0.00 Indirect Bilirubin 0.5 0.6 Aspartate Amino Transf (AST/SGOT) 65 H 70 H Alanine Aminotransferase (ALT/SGPT) 38 46 Alkaline Phosphatase 63 66 Troponin I 0.190 *H Total Protein 6.2 5.9 L Albumin 3.2 L 3.0 L Globulin 3.00 2.90 Albumin/Globulin Ratio 1.06 1.03 Erythrocyte Sedimentation Rate 4 Test 06/10/17 03:11 06/10/17 06:27 06/10/17 09:36 06/10/17 09:40 Lactic Acid Level 2.3 *H 1.5 Creatine Kinase 1467 H Creatine Kinase Index 1.3 Creatinine Kinase MB (Mass) 19.30 H Troponin I 0.784 *H Hemoglobin A1c 5.3 White Blood Count 11.3 #H Red Blood Count 4.81 Hemoglobin 14.5 Hematocrit 43.5 Mean Corpuscular Volume 90.4 Mean Corpuscular Hemoglobin 30.1 Mean Corpuscular Hemoglobin Concent 33.3 Red Cell Distribution Width 12.8 Platelet Count 170 Mean Platelet Volume 10.4 Neutrophils % 71.6 Lymphocytes % 14.5 L Monocytes % 10.9 Eosinophils % 2.1 Basophils % 0.5 Nucleated Red Blood Cells % 0.0 Neutrophils # 8.1 H Lymphocytes # 1.6 Monocytes # 1.2 H Eosinophils # 0.2 Basophils # 0.1 Nucleated Red Blood Cells # 0.0 Prothrombin Time 13.8 Prothrombin Time Ratio 1.1 INR International Normalized Ratio 1.06 Activated Partial Thromboplast Time 26.9 Medications Medications Current Medications Piperacillin Sod/ Tazobactam Sod 50 ml @ 100 mls/hr Q6 IVPB Last administered on 06/10/17 12:13; Admin Dose 100 MLS/HR; Start 06/10/17 at 00:00 Vancomycin HCl/ Sodium Chloride (Vancocin/NS) 250 ml @ 83.333 mls/ hr Q24H IVPB ; Start 06/10/17 at 10:00 Citalopram Hydrobromide (Celexa) 10 mg DAILY PO Last administered on 10:27; Admin Dose 10 MG; Start 06/10/17 at 09:30 Divalproex Sodium (Depakote Sprinkle) 125 mg QID PO ; Start 06/10/17 at 13:00 Donepezil HCl (Aricept) 5 mg QHS PO ; Start 06/10/17 at 21:00 Oxybutynin Chloride (Ditropan Xl) 5 mg DAILY PO ; Start 06/10/17 at 11:00 Atorvastatin Calcium (Lipitor) 20 mg DAILY@21 PO ; Start 06/10/17 at 21:00 Finasteride (Proscar) 5 mg QHS PO ; Start 06/10/17 at 21:00 KIRA VALERIO Jun 10, 2017 12:30
[2017-06-10 13:06] LABS: CK-MB 13.8 ng/ml (0.0-2.4); TROPONIN-I 0.514 ng/ml (0.00-0.12)
[2017-06-10] MEDS: OXYBUTYNIN (XL) 5 MG TAB PO SCH (13:06)
[2017-06-10] MEDS: VANCOMYCIN 1.5 GM in SOD CHLORIDE 0.9% 250 ML IVPB SCH (13:06)
[2017-06-10] MEDS: DIVALPROEX SPRINKLE 125 MG CAP PO SCH ×3 (13:06→21:42)
[2017-06-10] MEDS: ASPIRIN 81 MG TAB PO SCH (15:52)
[2017-06-10] MEDS: METOPROLOL 25 MG TAB PO SCH (15:53)
[2017-06-10] MEDS ORDERED: ATORVASTATIN 20 MG TAB PO SCH (21:00)
[2017-06-10] MEDS ORDERED: METOPROLOL 25 MG TAB PO SCH (21:00)
[2017-06-10] MEDS ORDERED: FINASTERIDE 1 MG XX SCH (21:00)
[2017-06-10] MEDS: FINASTERIDE 5 MG TAB PO SCH (21:42)
[2017-06-10] MEDS: DONEPEZIL 5 MG TAB PO SCH (21:42)
[2017-06-10] MEDS: ATORVASTATIN 20 MG TAB PO SCH (21:42)
[2017-06-11] VITALS (10 sets, daily range): BP systolic 129–155; BP diastolic 61–89; PULSE 62–85; RESP 18–21
[2017-06-11] MEDS: PIPER-TAZO 2.25 GM (PMX) 50 ML IVPB SCH ×4 (00:21→18:13)
[2017-06-11] MEDS: METOPROLOL 25 MG TAB PO SCH ×3 (00:35→20:18)
[2017-06-11] MEDS: HEPARIN 25000 UNITS/250 ML 250 ML IV SCH ×2 (02:09→09:08)
[2017-06-11 08:25] LABS: BASOPHIL # 0.1 10^3/ul (0.0-0.1); EOSINOPHILS # 0.4 10^3/ul (0.0-0.5); EOSINOPHILS % 4.6 % (0.0-7.0); HEMATOCRIT 40.5 % (42.0-52.0); HEMOGLOBIN 13.6 g/dl (14.0-18.0); LYMPHOCYTES # 1.7 10^3/ul (0.8-2.9); LYMPHOCYTES % 22.1 % (15.0-51.0); MEAN CORPUSCULAR HEMOGLOBIN 30.4 pg (29.0-33.0); MEAN CORPUSCULAR HGB CONC 33.6 g/dl (32.0-37.0); MEAN CORPUSCULAR VOLUME 90.6 fl (82.0-101.0); MEAN PLATELET VOLUME 10.7 fl (7.4-10.4); MONOCYTE # 0.9 10^3/ul (0.3-0.9); NEUTROPHIL # 4.7 10^3/ul (1.6-7.5); PLATELET COUNT 161 10^3/UL (140-415); RED BLOOD COUNT 4.47 10^6/ul (4.70-6.10); RED CELL DISTRIBUTION WIDTH 12.9 % (11.5-14.5); WHITE BLOOD COUNT 7.8 10^3/ul (4.8-10.8)
[2017-06-11 08:48] LABS: CALCIUM 9.1 mg/dl (8.4-10.2); CREATININE 1.12 mg/dl (0.61-1.24); POTASSIUM 4.2 mmol/L (3.5-5.1)
[2017-06-11] MEDS: VANCOMYCIN 1.5 GM in SOD CHLORIDE 0.9% 250 ML IVPB SCH (09:51)
[2017-06-11] MEDS: ASPIRIN 81 MG TAB PO SCH (09:52)
[2017-06-11] MEDS: OXYBUTYNIN (XL) 5 MG TAB PO SCH (09:52)
[2017-06-11] MEDS: CITALOPRAM 20 MG TAB PO SCH (09:52)
[2017-06-11] MEDS: DIVALPROEX SPRINKLE 125 MG CAP PO SCH ×4 (09:52→20:18)
--- NOTE | 2017-06-11 10:57 | CONS ---
Date/Time of Note Date/Time of Note DATE: 06/11/17 TIME: 10:56 Assessment/Plan Assessment/Plan Chief Complaint/Hosp Course NSTEMI: Peak trop 0.8. EF likely preserved but poor echo study. Likely type II in setting of septic shock/hypotension in background of likely CAD. Treat medically as pt is not a candidate for cardiac cath. Septic shock: Source unclear as of yet. Cultures negative Acute renal failure: improved with IVF H/o CVA HTN HL -d/c heparin -ASA, low dose statin -metoprolol 25mg BID -antibiotics per primary Problems: Consultation Date/Type/Reason Admit Date/Time Jun 09, 2017 at 22:01 Initial Consult Date 06/10/17 Type of Consultation: Cardiology Referring Provider: PETERSON SHARPE MD 24 HR Interval Summary Free Text/Dictation No o/n events. No chest pain. Remains confused. Exam/Review of Systems Vital Signs Vitals Vital Signs Date Time Temp Pulse Resp B/P Pulse Ox O2 Delivery O2 Flow Rate FiO2 06/11/17 08:00 66 06/11/17 07:51 98.1 20 135/80 95 06/10/17 20:03 21 06/10/17 01:55 2.0 06/10/17 01:00 Nasal Cannula Intake and Output 06/10/17 06/10/17 06/11/17 15:00 23:00 07:00 Intake Total 200 ml 362 ml Output Total 950 ml 400 ml Balance -750 ml -38 ml Exam Constitutional: alert, No oriented Psych: nl mood/affect, no complaints Head: atraumatic, normocephalic Neck: No jvd Respiratory: clear to auscultation, No crackles/rales Cardiovascular: regular rate and rhythm, No edema, No systolic murmur Gastrointestinal: non-tender, soft, No distended Neurological: nl speech, No nl mental status Results Result Diagram: 06/11/17 0806/11/17801 Results 24 hrs Laboratory Tests Test 06/10/17 12:10 06/10/17 17:30 06/11/17 00:51 06/11/17 08:02 Creatine Kinase 1226 H Creatine Kinase Index 1.1 Creatinine Kinase MB (Mass) 13.80 H Troponin I 0.514 *H Activated Partial Thromboplast Time 110.1 *H 104.8 *H 53.6 H White Blood Count 7.8 # Red Blood Count 4.47 L Hemoglobin 13.6 L Hematocrit 40.5 L Mean Corpuscular Volume 90.6 Mean Corpuscular Hemoglobin 30.4 Mean Corpuscular Hemoglobin Concent 33.6 Red Cell Distribution Width 12.9 Platelet Count 161 Mean Platelet Volume 10.7 H Neutrophils % 61.0 Lymphocytes % 22.1 Monocytes % 11.0 Eosinophils % 4.6 Basophils % 1.0 Nucleated Red Blood Cells % 0.0 Neutrophils # 4.7 Lymphocytes # 1.7 Monocytes # 0.9 Eosinophils # 0.4 Basophils # 0.1 Nucleated Red Blood Cells # 0.0 Sodium Level 145 H Potassium Level 4.2 Chloride Level 109 Carbon Dioxide Level 30 Anion Gap 10 Blood Urea Nitrogen 26 H Creatinine 1.12 Glucose Level 101 Calcium Level 9.1 C-Reactive Protein 4.4 H Medications Medications Current Medications Piperacillin Sod/ Tazobactam Sod 50 ml @ 100 mls/hr Q6 IVPB Last administered on 06/11/17 05:42; Admin Dose 100 MLS/HR; Start 06/10/17 at 00:00 Vancomycin HCl/ Sodium Chloride (Vancocin/NS) 250 ml @ 83.333 mls/ hr Q24H IVPB Last administered on 06/11/17 09:51; Admin Dose 83.333 MLS/HR; Start at 10:00 Citalopram Hydrobromide (Celexa) 10 mg DAILY PO Last administered on 09:52; Admin Dose 10 MG; Start 06/10/17 at 09:30 Divalproex Sodium (Depakote Sprinkle) 125 mg QID PO Last administered on 09:52; Admin Dose 125 MG; Start 06/10/17 at 13:00 Donepezil HCl (Aricept) 5 mg QHS PO Last administered on 06/10/17 21:42; Admin Dose 5 MG; Start 06/10/17 at 21:00 Oxybutynin Chloride (Ditropan Xl) 5 mg DAILY PO Last administered on 09:52; Admin Dose 5 MG; Start 06/10/17 at 11:00 Atorvastatin Calcium (Lipitor) 20 mg DAILY@21 PO Last administered on 11/16/ 17at 21:42; Admin Dose 20 MG; Start 06/10/17 at 21:00 Finasteride (Proscar) 5 mg QHS PO Last administered on 06/10/17 21:42; Admin Dose 5 MG; Start 06/10/17 at 21:00 Aspirin (Aspirin) 81 mg DAILY PO Last administered on 06/11/17 09:52; Admin Dose 81 MG; Start 06/10/17 at 15:00 Metoprolol Tartrate (Lopressor) 25 mg BID PO Last administered on 06/11/17 09 :52; Admin Dose 25 MG; Start 06/10/17 at 16:00 KIRA VALERIO Jun 11, 2017 10:57
--- NOTE | 2017-06-11 11:25 | PN ---
Date/Time of Note Date/Time of Note DATE: 06/11/17 TIME: 11:08 Assessment/Plan VTE Prophylaxis VTE Prophylaxis Intervention: SCD's Lines/Catheters IV Catheter Type (from Nrs): Saline Lock Urinary Cath still in place: Yes Reason Cath still needed: other (indicate) (will dc) Assessment/Plan Assessment/Plan 76 yo M with dementia sent from SNF for acute on chronic encephalopathy, most likely toxic/metabolic from sepsis with resultant lactic acidosis. Source of sepsis at this time unclear, possibly urine? Also with NSTEMI likely from demand from sepsis. #sepsis: cultures is process -continue zosyn, stop vanc as no evidence of MRSA colonization #NSTEMI: most likely from demand -sp heparin drip -cardiology on consult -cont home statin -bb started, resume acei -a1c 5.3 #LEO:RESOLVED -resume acei #lactic acidosis: 2/2 sepsis. RESOLVED #dementia/?hx seizures and/or bipolar d/o?: cont home psychotropic medications #BPH/?OAB: cont finasteride and ditropan #FEN: as per prophx: [facility] dispo: spoke to patient's . he has recently been at a SNF is less than enthused about. Requesting PT eval and to talk to CM about other SNFs. CM cs placed Exam/Review of Systems Vital Signs Vitals Vital Signs Date Time Temp Pulse Resp B/P Pulse Ox O2 Delivery O2 Flow Rate FiO2 06/11/17 08:00 66 06/11/17 07:51 98.1 20 135/80 95 06/10/17 20:03 21 06/10/17 01:55 2.0 06/10/17 01:00 Nasal Cannula Intake and Output 06/10/17 06/10/17 06/11/17 15:00 23:00 07:00 Intake Total 200 ml 362 ml Output Total 950 ml 400 ml Balance -750 ml -38 ml Results Result Diagram: 06/11/17 0806/11/17801 Results 24 hrs Laboratory Tests Test 06/10/17 12:10 06/10/17 17:30 06/11/17 00:51 06/11/17 08:02 Creatine Kinase 1226 H Creatine Kinase Index 1.1 Creatinine Kinase MB (Mass) 13.80 H Troponin I 0.514 *H Activated Partial Thromboplast Time 110.1 *H 104.8 *H 53.6 H White Blood Count 7.8 # Red Blood Count 4.47 L Hemoglobin 13.6 L Hematocrit 40.5 L Mean Corpuscular Volume 90.6 Mean Corpuscular Hemoglobin 30.4 Mean Corpuscular Hemoglobin Concent 33.6 Red Cell Distribution Width 12.9 Platelet Count 161 Mean Platelet Volume 10.7 H Neutrophils % 61.0 Lymphocytes % 22.1 Monocytes % 11.0 Eosinophils % 4.6 Basophils % 1.0 Nucleated Red Blood Cells % 0.0 Neutrophils # 4.7 Lymphocytes # 1.7 Monocytes # 0.9 Eosinophils # 0.4 Basophils # 0.1 Nucleated Red Blood Cells # 0.0 Sodium Level 145 H Potassium Level 4.2 Chloride Level 109 Carbon Dioxide Level 30 Anion Gap 10 Blood Urea Nitrogen 26 H Creatinine 1.12 Glucose Level 101 Calcium Level 9.1 C-Reactive Protein 4.4 H Medications Medications Current Medications Piperacillin Sod/ Tazobactam Sod 50 ml @ 100 mls/hr Q6 IVPB Last administered on 06/11/17 05:42; Admin Dose 100 MLS/HR; Start 06/10/17 at 00:00 Vancomycin HCl/ Sodium Chloride (Vancocin/NS) 250 ml @ 83.333 mls/ hr Q24H IVPB Last administered on 06/11/17 09:51; Admin Dose 83.333 MLS/HR; Start at 10:00 Citalopram Hydrobromide (Celexa) 10 mg DAILY PO Last administered on 09:52; Admin Dose 10 MG; Start 06/10/17 at 09:30 Divalproex Sodium (Depakote Sprinkle) 125 mg QID PO Last administered on 09:52; Admin Dose 125 MG; Start 06/10/17 at 13:00 Donepezil HCl (Aricept) 5 mg QHS PO Last administered on 06/10/17 21:42; Admin Dose 5 MG; Start 06/10/17 at 21:00 Oxybutynin Chloride (Ditropan Xl) 5 mg DAILY PO Last administered on 09:52; Admin Dose 5 MG; Start 06/10/17 at 11:00 Atorvastatin Calcium (Lipitor) 20 mg DAILY@21 PO Last administered on 21:42; Admin Dose 20 MG; Start 06/10/17 at 21:00 Finasteride (Proscar) 5 mg QHS PO Last administered on 06/10/17 21:42; Admin Dose 5 MG; Start 06/10/17 at 21:00 Aspirin (Aspirin) 81 mg DAILY PO Last administered on 06/11/17 09:52; Admin Dose 81 MG; Start 06/10/17 at 15:00 Metoprolol Tartrate (Lopressor) 25 mg BID PO Last administered on 06/11/17 09 :52; Admin Dose 25 MG; Start 06/10/17 at 16:00 PETERSON SHARPE MD Jun 11, 2017 11:18
[2017-06-11] MEDS: FINASTERIDE 5 MG TAB PO SCH (20:17)
[2017-06-11] MEDS: DONEPEZIL 5 MG TAB PO SCH (20:17)
[2017-06-11] MEDS: ATORVASTATIN 20 MG TAB PO SCH (20:17)
[2017-06-12] MEDS: DIVALPROEX SPRINKLE 125 MG CAP PO SCH ×5 (01:08→21:21)
[2017-06-12] MEDS: PIPER-TAZO 2.25 GM (PMX) 50 ML IVPB SCH ×2 (01:08→05:34)
[2017-06-12 02:06] VITALS: BP 146/70; RESP 18
[2017-06-12 06:36] LABS: BASOPHIL # 0.1 10^3/ul (0.0-0.1); BASOPHILS % 0.9 % (0.0-2.0); EOSINOPHILS # 0.4 10^3/ul (0.0-0.5); EOSINOPHILS % 5.7 % (0.0-7.0); HEMATOCRIT 40.6 % (42.0-52.0); HEMOGLOBIN 13.7 g/dl (14.0-18.0); LYMPHOCYTES # 1.8 10^3/ul (0.8-2.9); LYMPHOCYTES % 27.1 % (15.0-51.0); MEAN CORPUSCULAR HEMOGLOBIN 30.3 pg (29.0-33.0); MEAN CORPUSCULAR HGB CONC 33.7 g/dl (32.0-37.0); MEAN CORPUSCULAR VOLUME 89.8 fl (82.0-101.0); MEAN PLATELET VOLUME 11.6 fl (7.4-10.4); MONOCYTE # 0.7 10^3/ul (0.3-0.9); MONOCYTES % 10.6 % (0.0-11.0); NEUTROPHIL # 3.8 10^3/ul (1.6-7.5); NEUTROPHILS % 55.4 % (39.0-77.0); PLATELET COUNT 149 10^3/UL (140-415); POSITIVE DIFF @See below; RED BLOOD COUNT 4.52 10^6/ul (4.70-6.10); RED CELL DISTRIBUTION WIDTH 12.4 % (11.5-14.5); WHITE BLOOD COUNT 6.8 10^3/ul (4.8-10.8)
[2017-06-12 07:13] LABS: CALCIUM 9.2 mg/dl (8.4-10.2); CREATININE 0.99 mg/dl (0.61-1.24); MAGNESIUM 1.8 mg/dl (1.7-2.5); POTASSIUM 3.9 mmol/L (3.5-5.1)
[2017-06-12 07:42] VITALS: BP 169/84; RESP 18
[2017-06-12] MEDS ORDERED: CLOPIDOGREL 75 MG TAB PO SCH (09:00)
[2017-06-12] MEDS ORDERED: LISINOPRIL 20 MG TAB PO SCH (09:00)
[2017-06-12] MEDS: OXYBUTYNIN (XL) 5 MG TAB PO SCH (10:09)
[2017-06-12] MEDS: CITALOPRAM 20 MG TAB PO SCH (10:09)
[2017-06-12] MEDS: ASPIRIN 81 MG TAB PO SCH (10:09)
[2017-06-12] MEDS: METOPROLOL 25 MG TAB PO SCH ×2 (10:10→21:21)
--- NOTE | 2017-06-12 12:47 | CONS ---
Date/Time of Note Date/Time of Note DATE: 06/12/17 TIME: 12:46 Assessment/Plan Assessment/Plan Chief Complaint/Hosp Course NSTEMI: Peak trop 0.8. EF likely preserved but poor echo study. Likely type II in setting of septic shock/hypotension in background of likely CAD. Treat medically as pt is not a candidate for cardiac cath. Septic shock: Source unclear as of yet. Cultures negative Acute renal failure: improved with IVF H/o CVA HTN HL -ASA, low dose statin -metoprolol 25mg BID -antibiotics per primary Problems: Consultation Date/Type/Reason Admit Date/Time Jun 09, 2017 at 22:01 Initial Consult Date 06/10/17 Type of Consultation: Cardiology Referring Provider: PETERSON SHARPE MD 24 HR Interval Summary Free Text/Dictation No o/n events. No complaints Exam/Review of Systems Vital Signs Vitals Vital Signs Date Time Temp Pulse Resp B/P Pulse Ox O2 Delivery O2 Flow Rate FiO2 06/12/17 07:42 98.6 66 18 169/84 93 06/10/17 20:03 21 06/10/17 01:55 2.0 06/10/17 01:00 Nasal Cannula Intake and Output 06/11/17 06/11/17 06/12/17 15:00 23:00 07:00 Intake Total 770 ml 170 ml Output Total 300 ml Balance 470 ml 170 ml Exam Constitutional: alert, No oriented Psych: nl mood/affect, no complaints Head: atraumatic, normocephalic Neck: No jvd Respiratory: clear to auscultation, No crackles/rales Cardiovascular: regular rate and rhythm, No edema, No systolic murmur Gastrointestinal: non-tender, soft Neurological: nl mental status, nl speech Results Result Diagram: 06/12/17 0534 06/12/17 0534 Results 24 hrs Laboratory Tests Test 06/12/17 05:34 White Blood Count 6.8 Red Blood Count 4.52 L Hemoglobin 13.7 L Hematocrit 40.6 L Mean Corpuscular Volume 89.8 Mean Corpuscular Hemoglobin 30.3 Mean Corpuscular Hemoglobin Concent 33.7 Red Cell Distribution Width 12.4 Platelet Count 149 Mean Platelet Volume 11.6 H Neutrophils % 55.4 Lymphocytes % 27.1 Monocytes % 10.6 Eosinophils % 5.7 Basophils % 0.9 Nucleated Red Blood Cells % 0.0 Neutrophils # 3.8 Lymphocytes # 1.8 Monocytes # 0.7 Eosinophils # 0.4 Basophils # 0.1 Nucleated Red Blood Cells # 0.0 Sodium Level 145 H Potassium Level 3.9 Chloride Level 110 Carbon Dioxide Level 29 Anion Gap 10 Blood Urea Nitrogen 28 H Creatinine 0.99 Glucose Level 92 Calcium Level 9.2 Magnesium Level 1.8 Medications Medications Current Medications Piperacillin Sod/ Tazobactam Sod (Zosyn 2.25gm/ 50ml (Pmx)) 50 ml @ 100 mls/hr Q6 IVPB Last administered on 06/12/17 05:34; Admin Dose 100 MLS/HR; Start at 00:00 Citalopram Hydrobromide (Celexa) 10 mg DAILY PO Last administered on 10:09; Admin Dose 10 MG; Start 06/10/17 at 09:30 Divalproex Sodium (Depakote Sprinkle) 125 mg QID PO Last administered on 10:09; Admin Dose 125 MG; Start 06/10/17 at 13:00 Donepezil HCl (Aricept) 5 mg QHS PO Last administered on 06/11/17 20:17; Admin Dose 5 MG; Start 06/10/17 at 21:00 Oxybutynin Chloride (Ditropan Xl) 5 mg DAILY PO Last administered on 10:09; Admin Dose 5 MG; Start 06/10/17 at 11:00 Atorvastatin Calcium (Lipitor) 20 mg DAILY@21 PO Last administered on 20:17; Admin Dose 20 MG; Start 06/10/17 at 21:00 Finasteride (Proscar) 5 mg QHS PO Last administered on 06/11/17 20:17; Admin Dose 5 MG; Start 06/10/17 at 21:00 Aspirin (Aspirin) 81 mg DAILY PO Last administered on 06/12/17 10:09; Admin Dose 81 MG; Start 06/10/17 at 15:00 Metoprolol Tartrate (Lopressor) 25 mg BID PO Last administered on 06/12/17 10 :10; Admin Dose 25 MG; Start 06/10/17 at 16:00 Clopidogrel Bisulfate (plaVIX) 75 mg DAILY PO Last administered on 06/12/17 10:09; Admin Dose 75 MG; Start 06/12/17 at 09:00 Lisinopril (Zestril) 20 mg DAILY PO Last administered on 06/12/17 10:10; Admin Dose 20 MG; Start 06/12/17 at 09:00 KIRA VALERIO Jun 12, 2017 12:47
[2017-06-12] MEDS ORDERED: CEFTRIAXONE 1 GM/50 ML (PMX) 50 ML IVPB SCH (14:00)
[2017-06-12 14:39] VITALS: BP 160/77; RESP 18
--- NOTE | 2017-06-12 18:32 | PN ---
Date/Time of Note Date/Time of Note DATE: 06/12/17 TIME: 18:27 Assessment/Plan VTE Prophylaxis VTE Prophylaxis Intervention: SCD's Lines/Catheters IV Catheter Type (from Nrsg): Saline Lock Urinary Cath still in place: Yes Reason Cath still needed: other (indicate) Assessment/Plan Assessment/Plan 76 yo M with dementia sent from SNF for acute on chronic encephalopathy, most likely toxic/metabolic from sepsis with resultant lactic acidosis. Source of sepsis at this time unclear, possibly urine? Also with NSTEMI likely from demand from sepsis. #sepsis: cultures is process. suspect urine but urine was never sent -narrow abx further to ceftriaxone. if continues to do well, will convert tomorrow to PO levoflox and with a total length of therapy of 7 days #NSTEMI: most likely from demand -sp heparin drip -cardiology on consult -cont home statin -bb started, resumed acei -a1c 5.3 #LEO:RESOLVED -resumed acei #lactic acidosis: 2/2 sepsis. RESOLVED #dementia/?hx seizures and/or bipolar d/o?: cont home psychotropic medications #BPH/?OAB: cont finasteride and ditropan #FEN: as per [facility] prophx: [facility] dispo: spoke to patient's . he has recently been at a SNF is less than enthused about. Requesting PT eval and to talk to CM about other SNFs. CM cs placed Subjective 24 Hr Interval Summary Free Text/Dictation feeling much better Exam/Review of Systems Vital Signs Vitals Vital Signs Date Time Temp Pulse Resp B/P Pulse Ox O2 Delivery O2 Flow Rate FiO2 06/12/17 14:39 98.2 75 18 160/77 93 06/10/17 20:03 21 06/10/17 01:55 2.0 06/10/17 01:00 Nasal Cannula Intake and Output 06/11/17 06/11/17 06/12/17 15:00 23:00 07:00 Intake Total 770 ml 170 ml Output Total 300 ml Balance 470 ml 170 ml Exam nad no mrg lungs clear abd soft no rashes Results Result Diagram: 06/12/17 0534 06/12/17 0534 Results 24 hrs Laboratory Tests Test 06/12/17 05:34 White Blood Count 6.8 Red Blood Count 4.52 L Hemoglobin 13.7 L Hematocrit 40.6 L Mean Corpuscular Volume 89.8 Mean Corpuscular Hemoglobin 30.3 Mean Corpuscular Hemoglobin Concent 33.7 Red Cell Distribution Width 12.4 Platelet Count 149 Mean Platelet Volume 11.6 H Neutrophils % 55.4 Lymphocytes % 27.1 Monocytes % 10.6 Eosinophils % 5.7 Basophils % 0.9 Nucleated Red Blood Cells % 0.0 Neutrophils # 3.8 Lymphocytes # 1.8 Monocytes # 0.7 Eosinophils # 0.4 Basophils # 0.1 Nucleated Red Blood Cells # 0.0 Sodium Level 145 H Potassium Level 3.9 Chloride Level 110 Carbon Dioxide Level 29 Anion Gap 10 Blood Urea Nitrogen 28 H Creatinine 0.99 Glucose Level 92 Calcium Level 9.2 Magnesium Level 1.8 Medications Medications Current Medications Citalopram Hydrobromide (Celexa) 10 mg DAILY PO Last administered on 10:09; Admin Dose 10 MG; Start 06/10/17 at 09:30 Divalproex Sodium (Depakote Sprinkle) 125 mg QID PO Last administered on 18:16; Admin Dose 125 MG; Start 06/10/17 at 13:00 Donepezil HCl (Aricept) 5 mg QHS PO Last administered on 06/11/17 20:17; Admin Dose 5 MG; Start 06/10/17 at 21:00 Oxybutynin Chloride (Ditropan Xl) 5 mg DAILY PO Last administered on 10:09; Admin Dose 5 MG; Start 06/10/17 at 11:00 Atorvastatin Calcium (Lipitor) 20 mg DAILY@21 PO Last administered on 20:17; Admin Dose 20 MG; Start 06/10/17 at 21:00 Finasteride (Proscar) 5 mg QHS PO Last administered on 06/11/17 20:17; Admin Dose 5 MG; Start 06/10/17 at 21:00 Aspirin (Aspirin) 81 mg DAILY PO Last administered on 06/12/17 10:09; Admin Dose 81 MG; Start 06/10/17 at 15:00 Metoprolol Tartrate (Lopressor) 25 mg BID PO Last administered on 06/12/17 10 :10; Admin Dose 25 MG; Start 06/10/17 at 16:00 Clopidogrel Bisulfate (plaVIX) 75 mg DAILY PO Last administered on 06/12/17 10:09; Admin Dose 75 MG; Start 06/12/17 at 09:00 Lisinopril 20 mg 20 mg DAILY PO Last administered on 06/12/17 10:10; Admin Dose 20 MG; Start 06/12/17 at 09:00 Ceftriaxone Sodium (Rocephin) 50 ml @ 100 mls/hr Q24H IVPB Last administered on 06/12/17 14:32; Admin Dose 100 MLS/HR; Start 06/12/17 at 14:00 PETERSON SHARPE MD Jun 12, 2017 18:32
[2017-06-12 20:16] VITALS: BP 130/73; RESP 20
[2017-06-12] MEDS: FINASTERIDE 5 MG TAB PO SCH (21:21)
[2017-06-12] MEDS: ATORVASTATIN 20 MG TAB PO SCH (21:21)
[2017-06-12] MEDS: DONEPEZIL 5 MG TAB PO SCH (21:21)
[2017-06-13 02:00] VITALS: BP 149/72; PULSE 68; RESP 18
[2017-06-13 07:36] VITALS: BP 171/83; RESP 16
--- NOTE | 2017-06-13 09:36 | CONS ---
Date/Time of Note Date/Time of Note DATE: 06/13/17 TIME: 09:35 Assessment/Plan Assessment/Plan Chief Complaint/Hosp Course NSTEMI: Peak trop 0.8. EF likely preserved but poor echo study. Likely type II in setting of septic shock/hypotension in background of likely CAD. Treat medically as pt is not a candidate for cardiac cath. Septic shock: Source unclear as of yet. Cultures negative Acute renal failure: improved with IVF H/o CVA HTN HL -ASA, low dose statin -metoprolol 25mg BID -increase to lisinopril 40mg -antibiotics per primary Problems: Consultation Date/Type/Reason Admit Date/Time Jun 09, 2017 at 22:01 Initial Consult Date 06/10/17 Type of Consultation: Cardiology Referring Provider: PETERSON SHARPE MD 24 HR Interval Summary Free Text/Dictation No o/n events. No complaints Exam/Review of Systems Vital Signs Vitals Vital Signs Date Time Temp Pulse Resp B/P Pulse Ox O2 Delivery O2 Flow Rate FiO2 06/13/17 07:36 98.2 58 16 171/83 92 06/13/17 02:00 Room Air 06/10/17 20:03 21 06/10/17 01:55 2.0 Intake and Output 06/12/17 06/12/17 06/13/17 15:00 23:00 07:00 Intake Total 1570 ml 500 ml Balance 1570 ml 500 ml Exam Constitutional: alert Psych: nl mood/affect, no complaints Head: atraumatic, normocephalic Neck: No jvd Respiratory: clear to auscultation, No crackles/rales Cardiovascular: regular rate and rhythm, No edema, No systolic murmur Gastrointestinal: non-tender, soft Neurological: nl mental status Results Result Diagram: 06/12/17 0534 06/12/17 0534 Medications Medications Current Medications Citalopram Hydrobromide (Celexa) 10 mg DAILY PO Last administered on 10:09; Admin Dose 10 MG; Start 06/10/17 at 09:30 Divalproex Sodium (Depakote Sprinkle) 125 mg QID PO Last administered on 21:21; Admin Dose 125 MG; Start 06/10/17 at 13:00 Donepezil HCl (Aricept) 5 mg QHS PO Last administered on 06/12/17 21:21; Admin Dose 5 MG; Start 06/10/17 at 21:00 Oxybutynin Chloride (Ditropan Xl) 5 mg DAILY PO Last administered on 10:09; Admin Dose 5 MG; Start 06/10/17 at 11:00 Atorvastatin Calcium (Lipitor) 20 mg DAILY@21 PO Last administered on 21:21; Admin Dose 20 MG; Start 06/10/17 at 21:00 Finasteride (Proscar) 5 mg QHS PO Last administered on 06/12/17 21:21; Admin Dose 5 MG; Start 06/10/17 at 21:00 Aspirin (Aspirin) 81 mg DAILY PO Last administered on 06/12/17 10:09; Admin Dose 81 MG; Start 06/10/17 at 15:00 Metoprolol Tartrate 25 mg 25 mg BID PO Last administered on 06/12/17 21:21; Admin Dose 25 MG; Start 06/10/17 at 16:00 Ceftriaxone Sodium (Rocephin) 50 ml @ 100 mls/hr Q24H IVPB Last administered on 06/12/17 14:32; Admin Dose 100 MLS/HR; Start 06/12/17 at 14:00 Lisinopril (Zestril) 40 mg DAILY PO ; Start 06/13/17 at 09:00 KIRA VALERIO Jun 13, 2017 09:36
[2017-06-13] MEDS: ASPIRIN 81 MG TAB PO SCH (09:39)
[2017-06-13] MEDS: DIVALPROEX SPRINKLE 125 MG CAP PO SCH ×4 (09:40→21:09)
[2017-06-13] MEDS: CITALOPRAM 20 MG TAB PO SCH (09:40)
[2017-06-13] MEDS: OXYBUTYNIN (XL) 5 MG TAB PO SCH (09:40)
[2017-06-13] MEDS: METOPROLOL 25 MG TAB PO SCH ×2 (09:40→21:16)
[2017-06-13] MEDS: LISINOPRIL 20 MG TAB PO SCH (09:41)
[2017-06-13] MEDS: LEVOFLOXACIN 750 MG TABLET PO SCH (12:52)
[2017-06-13 15:24] VITALS: BP 139/88; RESP 16
--- NOTE | 2017-06-13 16:37 | PN ---
Date/Time of Note Date/Time of Note DATE: 06/13/17 TIME: 16:34 Assessment/Plan VTE Prophylaxis VTE Prophylaxis Intervention: SCD's Lines/Catheters IV Catheter Type (from Nrsg): Saline Lock Urinary Cath still in place: Yes Reason Cath still needed: other (indicate) (already dced) Assessment/Plan Assessment/Plan 76 yo M with dementia sent from SNF for acute on chronic encephalopathy, most likely toxic/metabolic from sepsis with resultant lactic acidosis. Source of sepsis at this time unclear, possibly urine? Also with NSTEMI likely from demand from sepsis. Pt back to baseline mentation #sepsis: blood cultures neg. suspect urine but urine was never sent -convert to PO levoflox x 5 days #NSTEMI: most likely from demand -sp heparin drip -cardiology on consult -cont home statin -bb started, resumed acei -a1c 5.3 #LEO:RESOLVED -resumed acei #lactic acidosis: 2/2 sepsis. RESOLVED #dementia/?hx seizures and/or bipolar d/o?: cont home psychotropic medications #BPH/?OAB: cont finasteride and ditropan #FEN: as per ST prophx: [facility] dispo: CM talked to . PT/OT consults placed to help determine appropriate level of care for pt (SNF v HH v [facility]UST[facility]) Subjective 24 Hr Interval Summary Free Text/Dictation feels well Exam/Review of Systems Vital Signs Vitals Vital Signs Date Time Temp Pulse Resp B/P Pulse Ox O2 Delivery O2 Flow Rate FiO2 06/13/17 15:24 98.4 68 16 139/88 94 06/13/17 02:00 Room Air 06/10/17 20:03 21 06/10/17 01:55 2.0 Intake and Output 06/12/17 06/12/17 06/13/17 15:00 23:00 07:00 Intake Total 1570 ml 500 ml Balance 1570 ml 500 ml Exam nad no mrg lungs clear abd soft no rashes Results Result Diagram: 06/12/17 0534 06/12/17 0534 Medications Medications Current Medications Citalopram Hydrobromide (Celexa) 10 mg DAILY PO Last administered on t 09:40; Admin Dose 10 MG; Start 06/10/17 at 09:30 Divalproex Sodium (Depakote Sprinkle) 125 mg QID PO Last administered on 12:52; Admin Dose 125 MG; Start 06/10/17 at 13:00 Donepezil HCl (Aricept) 5 mg QHS PO Last administered on 06/12/17 21:21; Admin Dose 5 MG; Start 06/10/17 at 21:00 Oxybutynin Chloride (Ditropan Xl) 5 mg DAILY PO Last administered on 09:40; Admin Dose 5 MG; Start 06/10/17 at 11:00 Atorvastatin Calcium (Lipitor) 20 mg DAILY@21 PO Last administered on 21:21; Admin Dose 20 MG; Start 06/10/17 at 21:00 Finasteride (Proscar) 5 mg QHS PO Last administered on 06/12/17 21:21; Admin Dose 5 MG; Start 06/10/17 at 21:00 Aspirin (Aspirin) 81 mg DAILY PO Last administered on 06/13/17 09:39; Admin Dose 81 MG; Start 06/10/17 at 15:00 Metoprolol Tartrate (Lopressor) 25 mg BID PO Last administered on 06/13/17 09 :40; Admin Dose 25 MG; Start 06/10/17 at 16:00 Lisinopril (Zestril) 40 mg DAILY PO Last administered on 06/13/17 09:41; Admin Dose 40 MG; Start 06/13/17 at 09:00 Levofloxacin (Levaquin) 750 mg DAILY@06 PO Last administered on 06/13/17 12: 52; Admin Dose 750 MG; Start 06/13/17 at 11:00 PETERSON SHARPE MD Jun 13, 2017 16:37
[2017-06-13 20:00] VITALS: BP 198/87; RESP 20
[2017-06-13] MEDS: ATORVASTATIN 20 MG TAB PO SCH (21:09)
[2017-06-13] MEDS: DONEPEZIL 5 MG TAB PO SCH (21:09)
[2017-06-13] MEDS: FINASTERIDE 5 MG TAB PO SCH (21:09)
[2017-06-13] MEDS: hydrALAzine 20 MG INJ IV PRN (22:50)
[2017-06-13 23:39] VITALS: BP 164/79; PULSE 76
[2017-06-14 02:00] VITALS: BP 191/85; RESP 20
[2017-06-14] MEDS: hydrALAzine 20 MG INJ IV PRN ×2 (03:23→09:29)
[2017-06-14] MEDS ORDERED: hydrALAzine 20 MG INJ IV ONE (04:00)
[2017-06-14 04:54] VITALS: BP 149/89; PULSE 66; RESP 20
[2017-06-14] MEDS: LEVOFLOXACIN 750 MG TABLET PO SCH (05:42)
[2017-06-14] MEDS: DIVALPROEX SPRINKLE 125 MG CAP PO SCH ×4 (08:13→21:26)
[2017-06-14] MEDS: ASPIRIN 81 MG TAB PO SCH (08:14)
[2017-06-14] MEDS: METOPROLOL 25 MG TAB PO SCH ×2 (08:14→21:26)
[2017-06-14] MEDS: CITALOPRAM 20 MG TAB PO SCH (08:14)
[2017-06-14] MEDS: OXYBUTYNIN (XL) 5 MG TAB PO SCH (08:14)
[2017-06-14] MEDS: LISINOPRIL 20 MG TAB PO SCH (08:14)
[2017-06-14 08:19] VITALS: BP 182/104; RESP 18
--- NOTE | 2017-06-14 10:27 | CONS ---
Date/Time of Note Date/Time of Note DATE: 06/14/17 TIME: 10:26 Assessment/Plan Assessment/Plan Chief Complaint/Hosp Course NSTEMI: Peak trop 0.8. EF likely preserved but poor echo study. Likely type II in setting of septic shock/hypotension in background of likely CAD. Treat medically as pt is not a candidate for cardiac cath. Septic shock: Source unclear as of yet. Cultures negative Acute renal failure: improved with IVF H/o CVA HTN HL -ASA, low dose statin -metoprolol 25mg BID -lisinopril 40mg -add amlodipine 5mg -antibiotics per primary Problems: Consultation Date/Type/Reason Admit Date/Time Jun 09, 2017 at 22:01 Initial Consult Date 06/10/17 Type of Consultation: Cardiology Referring Provider: PETERSON SHARPE MD 24 HR Interval Summary Free Text/Dictation No o/n events. Pleasantly confused. Exam/Review of Systems Vital Signs Vitals Vital Signs Date Time Temp Pulse Resp B/P Pulse Ox O2 Delivery O2 Flow Rate FiO2 06/14/17 08:19 98.0 88 18 182/104 95 06/13/17 02:00 Room Air 06/10/17 20:03 21 Intake and Output 06/13/17 06/13/17 06/14/17 15:00 23:00 07:00 Intake Total 1000 ml 240 ml Balance 1000 ml 240 ml Exam Constitutional: alert, No oriented Psych: nl mood/affect, no complaints Head: atraumatic, normocephalic Neck: No jvd Respiratory: clear to auscultation, No crackles/rales Cardiovascular: regular rate and rhythm, No edema, No systolic murmur Gastrointestinal: non-tender, soft Neurological: nl mental status, nl speech Results Result Diagram: 06/12/17 0534 06/12/17 0534 Medications Medications Current Medications Citalopram Hydrobromide (Celexa) 10 mg DAILY PO Last administered on 08:14; Admin Dose 10 MG; Start 06/10/17 at 09:30 Divalproex Sodium (Depakote Sprinkle) 125 mg QID PO Last administered on 08:13; Admin Dose 125 MG; Start 06/10/17 at 13:00 Donepezil HCl (Aricept) 5 mg QHS PO Last administered on 06/13/17 21:09; Admin Dose 5 MG; Start 06/10/17 at 21:00 Oxybutynin Chloride (Ditropan Xl) 5 mg DAILY PO Last administered on 08:14; Admin Dose 5 MG; Start 06/10/17 at 11:00 Atorvastatin Calcium (Lipitor) 20 mg DAILY@21 PO Last administered on 21:09; Admin Dose 20 MG; Start 06/10/17 at 21:00 Finasteride (Proscar) 5 mg QHS PO Last administered on 06/13/17 21:09; Admin Dose 5 MG; Start 06/10/17 at 21:00 Aspirin (Aspirin) 81 mg DAILY PO Last administered on 06/14/17 08:14; Admin Dose 81 MG; Start 06/10/17 at 15:00 Metoprolol Tartrate (Lopressor) 25 mg BID PO Last administered on 06/14/17 08 :14; Admin Dose 25 MG; Start 06/10/17 at 16:00 Lisinopril (Zestril) 40 mg DAILY PO Last administered on 06/14/17 08:14; Admin Dose 40 MG; Start 06/13/17 at 09:00 Levofloxacin (Levaquin) 750 mg DAILY@06 PO Last administered on 06/14/17 05: 42; Admin Dose 750 MG; Start 06/13/17 at 11:00; Stop 06/18/17 at 10:59 Hydralazine HCl (Apresoline) 10 mg Q4H PRN IV ELEVATED BLOOD PRESSURE Last administered on 06/14/17 09:29; Admin Dose 10 MG; Start 06/13/17 at 21:30 Amlodipine Besylate (Norvasc) 5 mg DAILY PO ; Start 06/14/17 at 09:30 KIRA VALERIO Jun 14, 2017 10:27
[2017-06-14] MEDS: AMLODIPINE 5 MG TAB PO SCH (10:50)
--- NOTE | 2017-06-14 12:16 | PN ---
Date/Time of Note Date/Time of Note DATE: 06/14/17 TIME: 12:10 Assessment/Plan VTE Prophylaxis VTE Prophylaxis Intervention: heparin Lines/Catheters IV Catheter Type (from Nrs): Saline Lock Urinary Cath still in place: Yes Reason Cath still needed: urinary retention Assessment/Plan Chief Complaint/Hosp Course Assessment/Plan: 76 yo M with dementia sent from SNF for acute on chronic encephalopathy, most likely toxic/metabolic from sepsis with resultant lactic acidosis. Source of sepsis at this time unclear, possibly urine? Also with NSTEMI likely from demand from sepsis. 1. sepsis: Slowly improving, blood cultures neg. suspect urine although apparently urine was never sent Continue PO levoflox x 5 days 2. NSTEMI: most likely from demand, sp heparin drip -cardiology on consult, follow-up their recommendations -cont home statin -For now continue beta-uriel, acei, and now calcium channel uriel added today for elevated blood pressure 3. LEO:RESOLVED -resumed acei 4. lactic acidosis: 2/2 sepsis -has not been checked for the last few days consider checking now 5. dementia/?hx seizures and/or bipolar d/o?: cont home psychotropic medications 6. BPH/?OAB: cont finasteride and ditropan 7. FEN: as per ST prophx: [facility] dispo: CM talked to earlier this admission. PT/OT consults placed to help determine appropriate level of care for pt (SNF v v [facility])-follow-up results Problems: Subjective 24 Hr Interval Summary Free Text/Dictation No acute events overnight, seen by cardiology team this morning. Exam/Review of Systems Vital Signs Vitals Vital Signs Date Time Temp Pulse Resp B/P Pulse Ox O2 Delivery O2 Flow Rate FiO2 06/14/17 08:19 98.0 88 18 182/104 95 06/13/17 02:00 Room Air 06/10/17 20:03 21 Intake and Output 06/13/17 06/13/17 06/14/17 15:00 23:00 07:00 Intake Total 1000 ml 240 ml Balance 1000 ml 240 ml Exam Lying in bed, Nad supple no mrg lungs clear abd soft no Lower extremity edema bilaterally Results Result Diagram: 06/12/17 0534 06/12/17 0534 Medications Medications Current Medications Citalopram Hydrobromide (Celexa) 10 mg DAILY PO Last administered on 08:14; Admin Dose 10 MG; Start 06/10/17 at 09:30 Divalproex Sodium (Depakote Sprinkle) 125 mg QID PO Last administered on 08:13; Admin Dose 125 MG; Start 06/10/17 at 13:00 Donepezil HCl (Aricept) 5 mg QHS PO Last administered on 06/13/17 21:09; Admin Dose 5 MG; Start 06/10/17 at 21:00 Oxybutynin Chloride (Ditropan Xl) 5 mg DAILY PO Last administered on 08:14; Admin Dose 5 MG; Start 06/10/17 at 11:00 Atorvastatin Calcium (Lipitor) 20 mg DAILY@21 PO Last administered on 21:09; Admin Dose 20 MG; Start 06/10/17 at 21:00 Finasteride (Proscar) 5 mg QHS PO Last administered on 06/13/17 21:09; Admin Dose 5 MG; Start 06/10/17 at 21:00 Aspirin (Aspirin) 81 mg DAILY PO Last administered on 06/14/17 08:14; Admin Dose 81 MG; Start 06/10/17 at 15:00 Metoprolol Tartrate (Lopressor) 25 mg BID PO Last administered on 06/14/17 08 :14; Admin Dose 25 MG; Start 06/10/17 at 16:00 Lisinopril (Zestril) 40 mg DAILY PO Last administered on 06/14/17 08:14; Admin Dose 40 MG; Start 06/13/17 at 09:00 Levofloxacin (Levaquin) 750 mg DAILY@06 PO Last administered on 06/14/17 05: 42; Admin Dose 750 MG; Start 06/13/17 at 11:00; Stop 06/18/17 at 10:59 Hydralazine HCl (Apresoline) 10 mg Q4H PRN IV ELEVATED BLOOD PRESSURE Last administered on 06/14/17 09:29; Admin Dose 10 MG; Start 06/13/17 at 21:30 Amlodipine Besylate (Norvasc) 5 mg DAILY PO Last administered on 06/14/17 10: 50; Admin Dose 5 MG; Start 06/14/17 at 09:30 LALA STORM Jun 14, 2017 12:16
[2017-06-14 13:06] LABS: ADD UMIC NO; UR ASCORBIC ACID NEGATIVE (NEGATIVE); UR BILIRUBIN (Dip) NEGATIVE (NEGATIVE); UR BLOOD (Dip) NEGATIVE (NEGATIVE); UR CLARITY CLEAR (CLEAR); UR COLOR STRAW (YELLOW); UR GLUCOSE (Dip) NEGATIVE (NEGATIVE); UR KETONES (Dip) TRACE mg/dL (NEGATIVE); UR LEUKOCYTE ESTERASE (Dip) NEGATIVE Leu/ul (NEGATIVE); UR NITRITE (Dip) NEGATIVE (NEGATIVE); UR SPECIFIC GRAVITY (Dip) 1.009 (1.003-1.030); UR TOTAL PROTEIN (Dip) NEGATIVE (NEGATIVE); UR UROBILINOGEN (Dip) NEGATIVE (NEGATIVE)
[2017-06-14 13:51] LABS: CALCIUM 9.4 mg/dl (8.4-10.2); CREATININE 0.86 mg/dl (0.61-1.24); POTASSIUM 4.4 mmol/L (3.5-5.1)
[2017-06-14 14:06] VITALS: BP 137/75; RESP 14
[2017-06-14 19:48] VITALS: BP 146/83; RESP 16
[2017-06-14] MEDS: DONEPEZIL 5 MG TAB PO SCH (21:26)
[2017-06-14] MEDS: ATORVASTATIN 20 MG TAB PO SCH (21:26)
[2017-06-14] MEDS: FINASTERIDE 5 MG TAB PO SCH (21:26)
[2017-06-14] MEDS: HEPARIN 5,000 UNIT/0.5 ML VIAL SC SCH (21:28)
[2017-06-15 01:58] VITALS: BP 158/100; RESP 16
[2017-06-15] MEDS: LEVOFLOXACIN 750 MG TABLET PO SCH (05:41)
[2017-06-15 08:05] VITALS: BP 164/90; RESP 16
[2017-06-15] MEDS: HEPARIN 5,000 UNIT/0.5 ML VIAL SC SCH (08:25)
[2017-06-15] MEDS: LISINOPRIL 20 MG TAB PO SCH (08:26)
[2017-06-15] MEDS: OXYBUTYNIN (XL) 5 MG TAB PO SCH (08:27)
[2017-06-15] MEDS: DIVALPROEX SPRINKLE 125 MG CAP PO SCH ×3 (08:27→17:33)
[2017-06-15] MEDS: CITALOPRAM 20 MG TAB PO SCH (08:27)
[2017-06-15] MEDS: AMLODIPINE 5 MG TAB PO SCH (08:27)
[2017-06-15] MEDS: ASPIRIN 81 MG TAB PO SCH (08:28)
[2017-06-15] MEDS: METOPROLOL 25 MG TAB PO SCH (08:29)
--- NOTE | 2017-06-15 12:04 | PN ---
Date/Time of Note Date/Time of Note DATE: 06/15/17 TIME: 12:02 Assessment/Plan VTE Prophylaxis VTE Prophylaxis Intervention: heparin Lines/Catheters IV [facility] Saline Lock Urinary Cath still in place: Yes Reason Cath still needed: urinary retention Assessment/Plan Chief Complaint/Hosp Course Assessment/Plan: 76 yo M with dementia sent from SNF for acute on chronic encephalopathy, most likely toxic/metabolic from sepsis with resultant lactic acidosis. Source of sepsis at this time unclear, possibly urine? Also with NSTEMI likely from demand from sepsis. 1. sepsis: Slowly improving, blood cultures neg. initial UA was negative, culture was not sent, but CT abdomen pelvis on admission did show nonspecific thickening of the wall of the urinary bladder. -We will check chest x-ray, for now continue PO levoflox x 5 days if chest x- ray negative per 2. NSTEMI: most likely from demand, sp heparin drip -cardiology on consult, follow-up their recommendations -cont home statin -For now continue beta-uriel, acei, calcium channel uriel added today for elevated blood pressure 3. ELO:RESOLVED -resumed acei 4. lactic acidosis: 2/2 sepsis -has not been checked for the last few days consider checking now 5. dementia/?hx seizures and/or bipolar d/o?: cont home psychotropic medications 6. BPH/?OAB: cont finasteride and ditropan 7. FEN: as per ST prophx: [facility] dispo: Likely to sniff, case hardener working on this. Problems: Subjective 24 Hr Interval Summary Free Text/Dictation No acute events overnight. Worked with physical therapy yesterday. Exam/Review of Systems Vital Signs Vitals Vital Signs Date Time Temp Pulse Resp B/P Pulse Ox O2 Delivery O2 Flow Rate FiO2 06/15/17 08:05 97.8 67 16 164/90 94 06/13/17 02:00 Room Air Intake and Output 06/14/17 06/14/17 06/15/17 14:59 22:59 06:59 Intake Total 1200 ml 300 ml Output Total 300 ml 500 ml Balance 900 ml -200 ml Exam Lying in bed, Nad supple no mrg lungs clear abd soft no Lower extremity edema bilaterally Results Result Diagram: 06/12/17 0534 06/14/17 1255 Results 24 hrs Laboratory Tests Test 06/14/17 12:10 06/14/17 12:53 06/14/17 12:55 Urine Color STRAW Urine Clarity CLEAR Urine pH 8.0 Urine Specific [place] 1.009 Urine Ketones TRACE A Urine Nitrite NEGATIVE Urine Bilirubin NEGATIVE Urine Urobilinogen NEGATIVE Urine Leukocyte Esterase NEGATIVE Urine Hemoglobin NEGATIVE Urine Glucose NEGATIVE Urine Total Protein NEGATIVE Lactic Acid Level 1.1 Sodium Level 139 Potassium Level 4.4 Chloride Level 105 Carbon Dioxide Level 26 Anion Gap 12 Blood Urea Nitrogen 17 Creatinine 0.86 Glucose Level 93 Calcium Level 9.4 Medications Medications Current Medications Citalopram Hydrobromide (Celexa) 10 mg DAILY PO Last administered on 08:27; Admin Dose 10 MG; Start 06/10/17 at 09:30 Divalproex Sodium (Depakote Sprinkle) 125 mg QID PO Last administered on 08:27; Admin Dose 125 MG; Start 06/10/17 at 13:00 Donepezil HCl (Aricept) 5 mg QHS PO Last administered on 06/14/17 21:26; Admin Dose 5 MG; Start 06/10/17 at 21:00 Oxybutynin Chloride (Ditropan Xl) 5 mg DAILY PO Last administered on 08:27; Admin Dose 5 MG; Start 06/10/17 at 11:00 Atorvastatin Calcium (Lipitor) 20 mg DAILY@21 PO Last administered on 21:26; Admin Dose 20 MG; Start 06/10/17 at 21:00 Finasteride (Proscar) 5 mg QHS PO Last administered on 06/14/17 21:26; Admin Dose 5 MG; Start 06/10/17 at 21:00 Aspirin (Aspirin) 81 mg DAILY PO Last administered on 06/15/17 08:28; Admin Dose 81 MG; Start 06/10/17 at 15:00 Metoprolol Tartrate (Lopressor) 25 mg BID PO Last administered on 06/15/17 08 :29; Admin Dose 25 MG; Start 06/10/17 at 16:00 Lisinopril (Zestril) 40 mg DAILY PO Last administered on 06/15/17 08:26; Admin Dose 40 MG; Start 06/13/17 at 09:00 Levofloxacin (Levaquin) 750 mg DAILY@06 PO Last administered on 06/15/17 05: 41; Admin Dose 750 MG; Start 06/13/17 at 11:00; Stop 06/18/17 at 10:59 Hydralazine HCl (Apresoline) 10 mg Q4H PRN IV ELEVATED BLOOD PRESSURE Last administered on 06/14/17 09:29; Admin Dose 10 MG; Start 06/13/17 at 21:30 Amlodipine Besylate (Norvasc) 5 mg DAILY PO Last administered on 06/15/17 08: 27; Admin Dose 5 MG; Start 06/14/17 at 09:30 Heparin Sodium (Porcine) (Heparin (5000 Units/0.5 ml)) 5,000 unit BID SC Last administered on 06/15/17 08:25; Admin Dose 5,000 UNIT; Start 06/14/17 at 21: 00 LALA STORM Jun 15, 2017 12:04
--- NOTE | 2017-06-15 13:05 | RADRPT ---
PROCEDURE: Chest x-ray CLINICAL INDICATION: Shortness of breath TECHNIQUE: Chest single view COMPARISON: None FINDINGS: There is mild cardiomegaly and atherosclerotic aortic calcification. The pulmonary vessels are amaury l in caliber. The lungs are clear. The costophrenic angles are sharp. The visualized bony thorax is unremarkable. IMPRESSION: Mild cardiomegaly and an sclerotic aortic calcification Low lung volumes RPTAT: HH .Chaitanya Gonzalez MD, MD Date Time Electronically viewed and signed by .Chaitanya Gonzalez MD, on 06/15/2017 13:04 .W/
--- NOTE | 2017-06-15 13:11 | CONS ---
Date/Time of Note Date/Time of Note DATE: 06/15/17 TIME: 13:08 Assessment/Plan Assessment/Plan Chief Complaint/Hosp Course NSTEMI: Peak trop 0.8. EF likely preserved but poor echo study. Likely type II in setting of septic shock/hypotension in background of likely CAD. Treat medically as pt is not a candidate for cardiac cath. Septic shock: Source unclear as of yet. Cultures negative Acute renal failure: improved with IVF H/o CVA HTN HL -ASA, low dose statin -metoprolol 25mg BID -lisinopril 40mg -increase to amlodipine 10mg -antibiotics per primary Problems: Consultation Date/Type/Reason Admit Date/Time Jun 09, 2017 at 22:01 Initial Consult Date 06/10/17 Type of Consultation: Cardiology Referring Provider: PETERSON SHARPE MD 24 HR Interval Summary Free Text/Dictation No o/n events. Exam/Review of Systems Vital Signs Vitals Vital Signs Date Time Temp Pulse Resp B/P Pulse Ox O2 Delivery O2 Flow Rate FiO2 06/15/17 08:05 97.8 67 16 164/90 94 06/13/17 02:00 Room Air Intake and Output 06/14/17 06/14/17 06/15/17 15:00 23:00 07:00 Intake Total 1200 ml 300 ml Output Total 300 ml 500 ml Balance 900 ml -200 ml Exam Constitutional: alert, No distress, No oriented Psych: nl mood/affect, no complaints Head: atraumatic, normocephalic Neck: supple, No jvd Respiratory: clear to auscultation, No crackles/rales Cardiovascular: regular rate and rhythm, No edema, No systolic murmur Gastrointestinal: non-tender, soft, No distended Neurological: nl mental status, nl speech Results Result Diagram: 06/12/17 0534 06/14/17 1255 Medications Medications Current Medications Citalopram Hydrobromide (Celexa) 10 mg DAILY PO Last administered on 08:27; Admin Dose 10 MG; Start 06/10/17 at 09:30 Divalproex Sodium (Depakote Sprinkle) 125 mg QID PO Last administered on 08:27; Admin Dose 125 MG; Start 06/10/17 at 13:00 Donepezil HCl (Aricept) 5 mg QHS PO Last administered on 06/14/17 21:26; Admin Dose 5 MG; Start 06/10/17 at 21:00 Oxybutynin Chloride (Ditropan Xl) 5 mg DAILY PO Last administered on 08:27; Admin Dose 5 MG; Start 06/10/17 at 11:00 Atorvastatin Calcium (Lipitor) 20 mg DAILY@21 PO Last administered on 21:26; Admin Dose 20 MG; Start 06/10/17 at 21:00 Finasteride (Proscar) 5 mg QHS PO Last administered on 06/14/17 21:26; Admin Dose 5 MG; Start 06/10/17 at 21:00 Aspirin (Aspirin) 81 mg DAILY PO Last administered on 06/15/17 08:28; Admin Dose 81 MG; Start 06/10/17 at 15:00 Metoprolol Tartrate (Lopressor) 25 mg BID PO Last administered on 06/15/17 08 :29; Admin Dose 25 MG; Start 06/10/17 at 16:00 Lisinopril (Zestril) 40 mg DAILY PO Last administered on 06/15/17 08:26; Admin Dose 40 MG; Start 06/13/17 at 09:00 Levofloxacin (Levaquin) 750 mg DAILY@06 PO Last administered on 06/15/17 05: 41; Admin Dose 750 MG; Start 06/13/17 at 11:00; Stop 06/18/17 at 10:59 Hydralazine HCl (Apresoline) 10 mg Q4H PRN IV ELEVATED BLOOD PRESSURE Last administered on 06/14/17 09:29; Admin Dose 10 MG; Start 06/13/17 at 21:30 Heparin Sodium (Porcine) (Heparin (5000 Units/0.5 ml)) 5,000 unit BID SC Last administered on 06/15/17 08:25; Admin Dose 5,000 UNIT; Start 06/14/17 at 21: 00 Amlodipine Besylate (Norvasc) 10 mg DAILY PO ; Start 06/16/17 at 09:00 KIRA VALERIO Jun 15, 2017 13:10
[2017-06-15 14:12] VITALS: BP 159/72; RESP 16
--- NOTE | 2017-06-15 14:47 | PDOCDIS ---
Discharge Instructions CONDITION Patient Condition: Stable HOME CARE INSTRUCTIONS: Special Diet: mechanical soft diet ACTIVITY: Activity Restrictions: Slowly Increase Activity FOLLOW UP/APPOINTMENTS Follow-up Plan Please take your medications as prescribed. Please see your doctor in the clinic in the next 1-2 weeks. LALA STORM Jun 15, 2017 14:47
[2017-06-15] MEDS ORDERED: LEVO750T25 PO (14:52)
[2017-06-15] MEDS ORDERED: LISI20TA11 PO (14:52)
[2017-06-15] MEDS ORDERED: AMLO-145 PO (14:52)
[2017-06-15] MEDS ORDERED: METO-448 PO (14:52)
[2017-06-15] MEDS ORDERED: ASPI81TA3 PO (14:52)
--- NOTE | 2017-06-15 14:57 | DS ---
Date/Time of Note Date/Time of Note DATE: 06/15/17 TIME: 14:53 Discharge Summary Admission/Discharge Info Admit Date/Time Jun 09, 2017 at 22:01 Discharge Date/Time Discharge Diagnosis 1. sepsis: Slowly improving, blood cultures neg. initial UA was negative, culture was not sent, but CT abdomen pelvis on admission did show nonspecific thickening of the wall of the urinary bladder. 2. NSTEMI: most likely from demand, sp heparin drip 3. LEO:RESOLVED -resumed acei 4. lactic acidosis: 2/2 sepsis - resolved 5. dementia/?hx seizures and/or bipolar d/o?: cont home psychotropic medications 6. BPH/?OAB: cont finasteride and ditropan 7. FEN: as per ST Patient Condition: Stable Hospital Course 76-year-old male with a history of dementia, hypertension, hyperlipidemia, stroke, BPH presenting from his nursing facility for altered mental status. History was obtained from the ER physician as well as the over the phone. Reportedly the patient was hypotensive with a systolic blood pressure in the 80s. He was given fluid bolus prior to arrival with improvement of his blood pressure. Per the facility, he has been increasingly altered there. states he has baseline dementia and he has been in and out of healthcare facilities over the past few weeks. stated he is a DNR and she did not want him to undergo aggressive procedures such as a lumbar tap or aggressive surgery unless something like "appendicitis" is found according to her. So patient was admitted, seen by cardiology team. He had signs of non-ST elevation OK, thought to be type II event secondary to demand ischemia and from sepsis. So he is medically managed for that after initially being on heparin drip. His more important issue was that he was in severe sepsis/shock and had to get aggressive IV fluid hydration and antibiotics. His lactic acid was elevated on admission, this trended down with the treatment as mentioned above, shock also resolved, source of sepsis was likely secondary to urine source, as CT abdomen pelvis on admission did show nonspecific thickening of the wall of the urinary bladder. Patient clinically improved, worked with physical therapy , able ambulate with assistance, tolerated p.o. diet, vital signs are stable, labs are stable, and will be discharged back to assisted living facility today improved condition with home health physical therapy. See below for full list of discharge medication list. Home Meds Active Scripts Aspirin (Aspirin) 81 Mg Chew, 81 MG PO DAILY, #30 TAB Prov:MISAEL STORMEEP S. 06/15/17 Metoprolol Tartrate* (Lopressor*) 25 Mg Tab, 25 MG PO BID, #60 TAB Prov:MISAEL STORMEEP S. 06/15/17 Lisinopril* (Lisinopril*) 20 Mg Tablet, 40 MG PO DAILY, #30 TAB Prov:ODTTYLALA S. 06/15/17 Amlodipine Besylate* (Amlodipine Besylate*) 5 Mg Tablet, 10 MG PO DAILY, #30 TAB Prov:DOTTYLALA S. 06/15/17 Levofloxacin* (Levaquin*) 750 Mg Tablet, 750 MG PO DAILY@06 for 5 Days, TAB Prov:NETTALALA S. 06/15/17 Reported Medications Lisinopril* (Lisinopril*) 20 Mg Tablet, 20 MG PO DAILY, #30 TAB 06/09/17 Simvastatin* (Zocor*) 40 Mg Tablet, 40 MG PO QHS, #30 TAB 06/09/17 Citalopram Hydrobromide* (Citalopram Hydrobromide*) 10 Mg Tablet, 10 MG PO DAILY , #30 TAB 06/09/17 Donepezil* (Aricept*) 5 Mg Tablet, 5 MG PO DAILY, TAB 06/09/17 Divalproex Sodium* (Divalproex Sodium*) 125 Mg Cap.sprink, 125 MG PO QID, #120 CAP 06/09/17 Oxybutynin Chloride* (Ditropan* XL) 5 Mg Tabsr, 5 MG PO DAILY, TAB.SA 06/09/17 Finasteride* (Finasteride*) 1 Mg Tablet, 5 MG PO HS, TAB 06/09/17 Discontinued Reported Medications Donepezil* (Donepezil*) 5 Mg Tablet, 5 MG PO DAILY, #30 TAB 06/09/17 Follow-up Plan Please take your medications as prescribed. Please see your doctor in the clinic in the next 1-2 weeks. Primary Care Provider Care Physician No Primary Time spent on discharge: > 30 minutes LALA STORM Jun 15, 2017 14:57
[2017-06-16] MEDS ORDERED: AMLODIPINE 5 MG TAB PO SCH (09:00)
== END 2017-06-15 19:20 | disposition home or self-care (01) | DRG 871 ==
LOC: E/R 19:16 → TEL 22:01 → MS2 06-11 18:47
PROVIDERS: ADMIT Family Medicine; ATTEND Family Medicine
DX: A41.9 Sepsis, unspecified organism (principal); R65.21 Severe sepsis with septic shock; I21.A1 Myocardial infarction type 2; N17.9 Acute kidney failure, unspecified; G92 Toxic encephalopathy; F03.90 Unspecified dementia, unspecified severity, without behavioral disturbance, psychotic disturbance, mood disturbance, and anxiety; I10 Essential (primary) hypertension; Z66 Do not resuscitate; E78.5 Hyperlipidemia, unspecified; N40.0 Benign prostatic hyperplasia without lower urinary tract symptoms; Z86.73 Personal history of transient ischemic attack (TIA), and cerebral infarction without residual deficits
CPT/HCPCS: 70450; 71010; 71250; 74176; 76775; 80048; 80053; 81003; 82550; 82553; 83036; 83605; 83735; 84484; 85025; 85610; 85651; 85730; 86140; 87040; 87081; 87086; 92526; 92610; 93005; 93306; 96374; 96375; 97162; 97530; J0360; J0696; J1644; J2543; J3370; J7030; J7050